=== PATIENT | male | born 1950 | race Caucasian/White ===

== ENCOUNTER 2019-09-30 10:07 | Observation (INO) | payer MEDICARE, SELFPAY ==
[2019-09-30 09:56] VITALS: BP 153/93; PULSE 63; RESP 24; TEMP 36.3; O2SAT 100; BMI 36.1
--- NOTE | 2019-09-30 10:06 | ECG_ITS ---
Measurements Intervals [place] Rate: 57 P: 23 [place]: 207 QRS: 33 QRSD: 117 T: 6 QT: 433 QTc: 424 SINUS BRADYCARDIA MODERATE INTRAVENTRICULAR CONDUCTION DELAY [110+ ms QRS DURATION] Compared to ECG 08/28/2017 08:32:15 Sinus rhythm no longer present Electronically Signed On 09-30-2019 15:21:00 SOCIAL SECURITY SPECIALIST by Yennifer Mustafa M.D. [email or web address]
--- NOTE | 2019-09-30 10:06 | CT_ITS ---
WS: [id number] CT HEAD TECHNIQUE: Noncontrast CT of the head obtained from the skullbase to the vertex. CLINICAL INFORMATION: Symptoms of Acute Stroke COMPARISON: None. DLP: All CT scans at [facility] use at least one of these dose optimization techniques: automat ed exposure control; mA and/or kV adjustment per patient size (includes targeted exams where dose is matched to clinical indication); or iterative reconstruction. FINDINGS: No evidence of intracranial hemorrhage or mass effect. Ventricular system and basal cisterns are underwood nt. Mild small vessel changes with mild parenchymal volume loss. No extra-axial fluid collections. No evidence of mass or mass effect. Normal hayward-white differentiation. Paranasal sinuses and mastoid air cells are well aerated. .Normal visualized soft tissues. Postoperat jailene changes right orbit Notified Eugene Wesley DO at 09/30/2019 10:[address]/CT head wo con* [id number] IMPRESSION: 1. No evidence of intracranial hemorrhage or mass effect. 2. Mild small vessel changes. Mild parenchymal volume loss. 3. Postoperative changes right orbit.
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
[2019-09-30 10:08] LABS: Glucose Point of Care 120 mg/dL (70-110)
[2019-09-30 10:13] LABS: Basophils # 0.1 10^3/uL (0.0-0.1); Basophils % 0.9 %; Eosinophils # 0.3 10^3/uL (0.0-0.8); Eosinophils % 4.6 %; Hematocrit 40.4 % (42.0-52.0); Hemoglobin 13.8 g/dL (11.7-16.6); Lymphocytes # 1.5 10^3/uL (0.8-4.8); Lymphocytes % 26.6 %; Mean Corpuscular HGB Conc 34.2 g/dL (30.0-36.0); Mean Corpuscular Hemoglobin 32.5 pg (28.0-34.0); Mean Corpuscular Volume 95.3 fL (80-94); Mean Platelet Volume 10.4 fL (7.4-10.4); Monocytes # 0.6 10^3/uL (0.2-0.9); Monocytes % 10.7 %; Neutrophils # 3.2 10^3/uL (1.8-7.7); Nucleated Red Blood Cells % 0 %; Platelet Count 229 10^3/cmm (130-400); Red Blood Count 4.24 10^6/uL (4.1-5.3); Red Cell Distribution Width 11.8 % (12.1-15.1); White Blood Count 5.6 10^3/uL (4.0-10.0)
[2019-09-30 10:18] LABS: INR 1.03 (0.8-1.2)
[2019-09-30 10:19] LABS: Partial Thromboplastin Time 28.4 SECONDS (23.9-36.7)
[2019-09-30 10:22] LABS: Alanine Aminotransferase 24 U/L (0-41); Albumin Level 4.3 g/dL (3.5-5.2); Alkaline Phosphatase 96 IU/L (40-130); Anion Gap 17.4 (5-19); Aspartate Amino Transferase 22 U/L (0-40); Blood Urea Nitrogen 20 mg/dL (8-23); Calcium 10.2 mg/dL (8.5-10.5); Carbon Dioxide 24 mmol/L (22-29); Chloride 104 mmol/L (98-107); Globulin 2.6 g/dL (1.3-4.6); Glomerular Filtration Rate 73.9 mL/min (90-130); Glucose 118 mg/dL (65-115); Potassium 4.4 mmol/L (3.5-5.1); Sodium 141 mmol/L (136-145); Total Bilirubin 0.7 mg/dL (0.15-1.2); Total Protein 6.9 g/dL (6.6-8.7)
--- NOTE | 2019-09-30 10:37 | XR_ITS ---
WS: [id number] XR chest 1V portable [id number] REASON FOR EXAM: dyspnea/cough FINDINGS: Cardiomegaly with arteriosclerotic changes. The lung sher are well aerated. There is no pneumonia, pleural effusion, pulmonary edema, there is evidence of reticular nodular pattern suggesting mild interstitial disease. The hilum and apices normal. Comparison was made to previous exam September 24, 2018 with limited change. XR/XR chest 1V portable [id number] IMPRESSION: Cardiomegaly with arteriosclerotic changes Early interstitial disease bilaterally.
[2019-09-30 10:43] LABS: Add Urine Microscopic? NO
[2019-09-30 10:55] LABS: Amphetamines Screen Urine Negative (Negative); Barbiturates Screen Urine Negative (Negative); Benzodiazepines Screen Urine Negative (Negative); Cocaine Screen Urine Negative (Negative); Opiate Screen Urine Negative (Negative); PCP Screen Urine Negative (Negative); THC Screen Urine Negative (Negative)
[2019-09-30 10:55] LABS: ABG PH Result 7.49 (7.35-7.45); Alveolar-Arterial Oxygen Gradi 42.4 mmHg (5-10); Arterial Blood Gas Hematocrit 43.5 % (42-52); Base Excess ABG 0.2 mmol/L (-2.0-2.0); Blood Gas Allen Test Pos; Blood Gas Operator Identificat amh; Blood Gas Sample Site Radial, left; Blood Gas Sample Type Arterial; Carboxyhemoglobin 0.7 %THgb (0.4-20.1); HCO3 ABG 22.7 mmol/L (22-26); HGB O2 Sat 95.1 % (95-100); Ionized Calcium Level - ABG 1.2 mmol/L (1.1-1.4); Methemoglobin 0.3 % (0.4-1.5); Oxygen Device ROOM AIR; Oxygen Saturation ABG 96.1; PO2 ABG 70.4 mmHg (80.0-100.0); Potassium Level - ABG 3.5 mmol/L (3.5-5.0); Total Hemoglobin 14.2 g/dL (14-18)
[2019-09-30 11:02] LABS: Bilirubin Urine Neg (NEGATIVE); Blood Urine Neg (Negative); Glucose Urine UA Norm (Normal); Ketones Urine Negative (Negative); Leukocyte Esterase Urine Negative (Negative); Nitrate Urine Negative (Negative); Protein Urine Neg (Negative); Sulfosalicylic Acid Urine Negative; Urine Appearance Clear (CLEAR); Urine Color Straw (Yellow); Urobilinogen Urine Norm (Negative)
[2019-09-30 11:04] LABS: Ketone (Acetest) Serum Negative (Negative)
[2019-09-30 11:08] LABS: Ammonia 38 umol/L (16-60)
[2019-09-30 11:18] LABS: Free T4 Free Thyroxine 0.93 ng/dL (0.82-1.77); Thyroid Stimulating Hormone 1.07 uIU/mL (0.27-4.20)
[2019-09-30 12:23] VITALS: BP 146/95; PULSE 62; RESP 22; O2SAT 97
[2019-09-30 14:18] VITALS: BP 150/77; PULSE 55; RESP 14; TEMP 36.5; O2SAT 94
--- NOTE | 2019-09-30 14:38 | CT_ITS ---
WS: [id number] CTA HEAD AND NECK TECHNIQUE: Contrast enhanced CTA of the head and neck with coronal and sagittal reformatted images an d maximum intensity projection (MIP) images. NASCET criteria utilized. CLINICAL INFORMATION: CVA COMPARISON: None. DLP: 2413.[address] scans at [facility] use at least one of these dose optimization techniques: automat ed exposure control; mA and/or kV adjustment per patient size (includes targeted exams where dose is matched to clinical indication); or iterative reconstruction. FINDINGS: RIGHT: Right common carotid artery is patent. Mild calcified atheromatous plaque right carotid bulb. No significant right ICA stenosis. Right ICA is patent to the skull base. LEFT: Left common carotid artery is patent. No significant left ICA stenosis. Left ICA is patent to t he skull base. Both vertebral arteries are patent. No significant vertebral artery stenosis. INTRACRANIAL CTA: Proximal basilar artery is patent. Normal vascularity to the DISTRIBUTION OPERATIONS SUPERVISOR territory bilaterally. Persistent ri ght DISTRIBUTION OPERATIONS SUPERVISOR. Both ICAs are patent at the skull base. Fusiform slightly ectatic right supraclinoid ICA without foca l aneurysm. Normal vascularity to the SOPHIA and MCA territories bilaterally. No evidence of high-grade proximal stenosis or aneurysm. Retention cyst right maxillary sinus. Postoperative changes right orbi t. Lung apices are well aerated. Normal parapharyngeal fat. CT/CT angio headneck* [id number] IMPRESSION: 1. No significant ICA stenosis bilaterally. 2. Normal [place]. No evidence of high-grade proximal stenosis or foc al aneurysm. 3. Mild fusiform dilatation of the right supraclinoid ICA likely incidental. N o significant stenosis or focal aneurysm.
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
[2019-09-30] MEDS: iohexol 350 mg/mL 100 mL Btl IV (15:32)
[2019-09-30 15:54] LABS: Chol HDL Ratio 5.52 mg/dL (1.0-5.00); Cholesterol 160 mg/dL (0-200); HDL Cholesterol 29 mg/dL (60-100); LDL Cholesterol Calculated 105 mg/dL (50-129); LDL HDL Ratio 3.62 RATIO (0.00-3.22); Triglycerides 132 mg/dL (0-150)
[2019-09-30 16:00] VITALS: BP 136/81; PULSE 57; RESP 16; TEMP 36.9; O2SAT 96
[2019-09-30] MEDS: sodium chloride 0.9% 1,000 ML 50 ML IV (16:16)
[2019-09-30] MEDS: enoxaparin 40 mg/0.4 mL Syringe SUBCUT (16:17)
[2019-09-30 18:37] LABS: Estmated Average Glucose 114; Hemoglobin A1C 5.6 % (4.0-6.0)
[2019-09-30 20:00] VITALS: BP 135/82; PULSE 62; RESP 18; TEMP 36.5; O2SAT 93
[2019-09-30] MEDS: acetaminophen 325 mg Tablet 650 MG PO (20:31)
[2019-09-30] MEDS: atorvastatin 40 mg Tablet PO (20:32)
[2019-10-01] VITALS: BP 128/86; PULSE 68; RESP 18; TEMP 36.7; O2SAT 94
--- NOTE | 2019-10-01 01:37 | PC.NURSE ---
Patient reports pain in his left zoroastrianism that comes and goes. Patient states, It comes like a sharp pain for a few seconds and then it stops. I first thought it was my CPAP Mask and where it was laying but now I am not sure. Cold washcloth placed on area. Will give Tylenol when it is due. Patient states that the headache that he had earlier did go away and he went to sleep. Patient's speech continues to be clear and left pupil is equal and reactive. Legal Job Titles remain equal and strength in left leg is slightly weaker then then right. Patient is A&Ox3.
[2019-10-01] MEDS: acetaminophen 325 mg Tablet 650 MG PO ×4 (01:58→13:40)
--- NOTE | 2019-10-01 02:00 | PC.NURSE ---
In room to give patient Tylenol. Patient states, They shooting pains have stopped now it is just a dull ache there. Tylenol given. Patient speech is clear and patient is A&Ox3.
[2019-10-01 04:00] VITALS: BP 124/72; PULSE 71; RESP 18; TEMP 36.8; O2SAT 95
[2019-10-01 06:11] LABS: Basophils # 0.1 10^3/uL (0.0-0.1); Eosinophils # 0.3 10^3/uL (0.0-0.8); Eosinophils % 5.6 %; Hematocrit 38.9 % (42.0-52.0); Hemoglobin 13.3 g/dL (11.7-16.6); Lymphocytes # 1.6 10^3/uL (0.8-4.8); Mean Corpuscular HGB Conc 34.2 g/dL (30.0-36.0); Mean Corpuscular Hemoglobin 33.7 pg (28.0-34.0); Mean Corpuscular Volume 98.5 fL (80-94); Mean Platelet Volume 10.3 fL (7.4-10.4); Monocytes # 0.6 10^3/uL (0.2-0.9); Monocytes % 11.9 %; Neutrophils # 2.6 10^3/uL (1.8-7.7); Neutrophils % 50.3 %; Nucleated Red Blood Cells % 0 %; Platelet Count 195 10^3/cmm (130-400); Red Blood Count 3.95 10^6/uL (4.1-5.3); Red Cell Distribution Width 11.6 % (12.1-15.1); White Blood Count 5.2 10^3/uL (4.0-10.0)
[2019-10-01 06:34] LABS: Alanine Aminotransferase 22 U/L (0-41); Albumin Level 3.7 g/dL (3.5-5.2); Alkaline Phosphatase 82 IU/L (40-130); Anion Gap 13.7 (5-19); Aspartate Amino Transferase 19 U/L (0-40); Blood Urea Nitrogen 16 mg/dL (8-23); Calcium 9.4 mg/dL (8.5-10.5); Carbon Dioxide 23 mmol/L (22-29); Chloride 107 mmol/L (98-107); Globulin 2.5 g/dL (1.3-4.6); Glomerular Filtration Rate 83.4 mL/min (90-130); Glucose 110 mg/dL (65-115); Potassium 3.7 mmol/L (3.5-5.1); Sodium 140 mmol/L (136-145); Total Bilirubin 0.5 mg/dL (0.15-1.2); Total Protein 6.2 g/dL (6.6-8.7)
--- NOTE | 2019-10-01 06:45 | PC.NURSE ---
Patient woke up with a headache at this time. Ice pack given. Explained to patient that it is to early for me to give Tylenol. Patient verbalized understanding.
[2019-10-01 07:53] VITALS: BP 158/90; PULSE 54; RESP 18; TEMP 36.4; O2SAT 95
[2019-10-01] MEDS: clopidogrel 75 mg Tablet PO (08:41)
[2019-10-01] MEDS: aspirin 81 mg EC Tablet PO (08:42)
[2019-10-01 10:28] VITALS: PULSE 53; RESP 18; O2SAT 95
[2019-10-01 11:33] VITALS: BP 162/90; PULSE 60; RESP 18; TEMP 36.4; O2SAT 96
[2019-10-01] MEDS: sodium chloride 0.9% 1,000 ML 50 ML IV (11:41)
--- NOTE | 2019-10-01 13:17 | PC.CHAP ---
Pastoral Care Encounter/Spiritual Assessment Type of Contact [] Declined grip wrapper visit [] Patient/Family/Request visit [] Outpatient visit [] Follow-up visit [] Physician referral [] Code/Alert [X] Routine visit [] Staff referral [] Actively dying [] Patient sleeping [] Family support [] [] Out of room [] Palliative care [] [] Receiving care in room [] Pre-surgical visit [] Trauma [] Long length of stay [] ICU visit [] Other: Relational/Emotional Strength [] Patient feels connected with others/family/visitors/staff [] Distress [] Loneliness/isolation [] Abandonment Spirituality of Patient [] Person of Sofia [] Attends Congregation of their Sofia [] Believes in Prayer [] Reads Bible or Anabaptism materials [] There are Spiritual issues to be addressed Billposter Interventions [] Prayer [] Active listening [] Non-anxious presence [] Spiritual/emotional support [] Crisis/trauma care [] Spiritual counseling [] Bereavement support [] Provided bereavement packet [] Provided Bible/devotional materials [] Provided toy/stuffed animal, coloring book to patient or family member [] Provided Communion [] Anointing/[place] [] Salvation [] Completed spiritual assessment [] Other: Impact on Illness or Injury [] Angry [] Fearful [] Anxious [] Often cries [] Exhaustion [] Unable to work [] Unable to attend spiritism [] Unable to walk/stand [] Unable to read [] Unable to drive [] Unable to eat/drink [] Unable to sleep [] Unable to be with family [] Patient intubated [] Other: Summary BEING DISCHARGED Time spent with patient
--- NOTE | 2019-10-01 14:40 | USCV_ITS ---
Jones Rodríguez Age: 68 Gender: M : 1950 Exam Date: 10/01/2019 09:17 Ordering Phys: Mackenzie Phan DO Technologist: Kay Saenz Exam Location: [facility] – [place], [place] Indication: cva BP: 158 / 90 HR: 59 Rhythm: Sinus Bradycardia Technical Quality: Fair MEASUREMENTS (Male / Female) Normal Values 2D ECHO LV Diastolic Diameter PLAX 5.0 cm 4.2 - 5.9 / 3.9 - 5.3 cm LV Systolic Diameter PLAX 3.2 cm LV Chamber Size 4.3 cm IVS Diastolic Thickness 2.0 cm 0.6 - 1.0 / 0.6 - 0.9 cm IVS Systolic Thickness 2.3 cm LVPW Diastolic Thickness 1.2 cm 0.6 - 1.0 / 0.6 - 0.9 cm LVPW Systolic Thickness 1.9 cm RV Chamber Size 2.8 cm LVOT Diameter 2.3 cm LV Ejection Fraction 2D Teich 66.6 % LV Ejection Fraction MOD 2C 61.9 % LV Ejection Fraction 2C AL 63.2 % LA Diameter 6.0 cm LA Width 4.0 cm LA Height 5.6 cm RA Width 2.5 cm RA Height 5.5 cm Aorta at Sinotubular Diameter 3.8 cm M-MODE LV Diastolic Diameter MM 5.6 cm 4.2 - 5.9 / 3.9 - 5.3 cm LV Systolic Diameter MM 3.6 cm LV Ejection Fraction MM Teich 63.4 % IVS Diastolic Thickness MM 1.7 cm 0.6 - 1.0 / 0.6 - 0.9 cm IVS Systolic Thickness MM 2.1 cm LVPW Diastolic Thickness MM 1.8 cm 0.6 - 1.0 / 0.6 - 0.9 cm LVPW Systolic Thickness MM 2.5 cm RV Diastolic Diameter MM 2.3 cm Aortic Annulus Diameter 4.8 cm LA Ao Ratio MM 1.2 MV E Point Septal Separation 0.5 cm DOPPLER AV Peak Velocity 141.0 cm/s LVOT Peak Velocity 111.0 cm/s AV Area Cont Eq vti 3.3 cm squared AV Area Cont Eq pk 3.2 cm squared MV Area PHT 3.3 cm squared Mitral E to A Ratio 0.8 MV E' Velocity 7.0 cm/s Mitral E to MV E' Ratio 11.5 Mitral E to LV E' Lateral Ratio 10.2 Mitral E to LV E' Septal Ratio 13.5 TR Peak Velocity 247.0 cm/s TR Peak Gradient 24.4 mmHg TV Peak E Velocity 72.0 cm/s Right Atrial Pressure 3.0 mmHg Pulmonary Artery Systolic Pressu 27.4 mmHg PV Peak Velocity 73.0 cm/s RV Acceleration Time 0.1 s RV Ejection Time 0.3 s RV AcT/ET 0.3 FINDINGS Left Ventricle Normal left ventricular cavity size. Normal left ventricular systolic function. No regional wall motion abnormalities. Left ventricular ejection fraction is estimated at 60 %. Grade I/IV diastolic dysfunction (abnormal relaxation filling pattern), normal to mildly elevated filling pressures. Right Ventricle The right ventricle is normal in size and function. Right Atrium The right atrium is normal in size. Left Atrium The left atrium is normal in size. Mitral Valve Structurally normal mitral valve without significant stenosis or prolapse. There is no mitral regurgitation. Aortic Valve Structurally normal aortic valve without significant sclerosis or stenosis. There is no aortic regurgitation. Tricuspid Valve Structurally normal tricuspid valve without significant stenosis or regurgitation. Pulmonary artery systolic pressure is normal. Pulmonic Valve Structurally normal pulmonic valve without significant stenosis. There is no pulmonic regurgitation. Pericardium Normal pericardium without effusion. Aorta Normal ascending aorta dimension. CONCLUSIONS 1-Normal left ventricular cavity size. Normal left ventricular systolic function. No regional wall motion abnormalities. Left ventricular ejection fraction is estimated at 60 %. Grade I/IV diastolic dysfunction (abnormal relaxation filling pattern), normal to mildly elevated filling pressures. 2-There is no pericardial effusion. 3-No significant valve abnormalities. 4-Pulmonary artery systolic pressure is within normal limits. 5-No significant change since the prior echocardiogram study of 09/30/2018. Roseanna Bello MD (Electronically Signed) Final Date: 01 October 2019 18:11 S
[2019-10-01 15:02] VITALS: BP 162/90; PULSE 60; RESP 18; TEMP 36.4; O2SAT 96
--- NOTE | 2019-10-01 15:17 | PM.DCS ---
Discharge Providers Date of Admission: 09/30/19 11:56 Date of Discharge: October 01, 2019 Attending Provider at Admission: Mackenzie Phan DO Attending Provider at Discharge: Mathew Kwan MD Primary Care Provider: Waqar Johns MD Diagnoses at Discharge Discharge Diagnosis (1) CVA (cerebrovascular accident): Status: Acute (2) Hypertension: Status: Acute (3) Hyperlipidemia: Status: Acute (4) Obstructive sleep apnea: Status: Acute (5) Aortic aneurysm: Status: Acute Qualifiers: Aortic location: thoracoabdominal aorta Presence of rupture: without rupture Qualified Code(s): I71.6 - Thoracoabdominal aortic aneurysm, without rupture Reason for Visit Reason for Visit: Reason For Visit: Possible Stroke Hospital Course Discharge Summary: This is a 68-year-old male with a past medical history of hypertension, hyperlipidemia who presents to the emergency room due to complaints of facial droop and weakness for greater than 24 hours. Patient's NIH stroke score on admission was 2, patient was not deemed a candidate for TPA, he was medically managed, CT of the head was negative for intracranial bleed, CT angiogram of the head and neck showed no significant ICA stenosis bilaterally, normal kenaitze of Haile, no evidence of high-grade proximal stenosis or focal aneurysm, mild fusiform dilatation of the right supraclinoid colloid ICA likely incidental, no significant stenosis or focal aneurysm. Patient's telemetry monitoring had no significant atrial fibrillation events. Patient's echocardiogram was pending on discharge. Patient symptoms significantly resolved, on the morning of discharge patient remained asymptomatic except for some mild facial numbness at the level of V2. Patient was discharged on aspirin and Plavix for 3 weeks, followed by aspirin 81 mg chronically. Patient has a chronic intolerance to statin, has severe myopathy, no history of rhabdomyolysis, after discussion of the risks and benefits, patient agreed to take atorvastatin 20 mg. Although I advised that after a stroke, high-dose statins such as atorvastatin 80 mg are recommended to decrease his risk of stroke, and lower the LDL less than 70, plaque stabilization, however patient advocated that he has a strong intolerance to statins, advised the risk of recurrent stroke, voiced understanding, all questions answered, agreed to take 20 mg of atorvastatin once daily although this is suboptimal dosing after stroke. Patient was advised to reinstitute blood pressure medications tomorrow. With a close follow-up with Dr. Johns early next week. Patient was advised that if he were to have recurrent strokelike symptoms to come to the emergency room. I have also discharged the patient on a Holter monitor to monitor for atrial fibrillation events. Physical Exam Const: COMMON NORMALS: no apparent distress and oriented x3 GENERAL APPEARANCE: cooperative and comfortable HENMT: COMMON NORMALS: normocephalic HEAD & SCALP: normocephalic Eye: COMMON NORMALS: PERRL, EOMs intact bilaterally and no papilledema GENERAL EYE: normal appearance of both eyes PUPIL: Yes PERRL DIRECT OPHTHALMOSCOPY: Yes no papilledema Neck/C-Spine: COMMON NORMALS: full ROM, no lymphadenopathy, no JVD and thyroid normal THYROID: thyroid normal Lymph: LYMPHATIC: no lymphadenopathy noted Resp: COMMON NORMALS: normal respiratory effort, no retractions, no use of accessory muscles and clear to auscultation bilaterally AUSCULTATION: clear to auscultation bilaterally Cardio: COMMON NORMALS: no JVD, regular rate, regular rhythm, S1 normal heart sound, S2 normal heart sound, no gallops, no clicks and no murmurs RATE: regular rate RHYTHM: regular rhythm HEART SOUNDS: S1 normal and S2 normal GI: COMMON NORMALS: normal to inspection, nondistended, normoactive bowel sounds, soft to palpation, non-tender and no hepatosplenomegaly PALPATION: Yes soft and Yes no hepatosplenomegaly Extremity: COMMON NORMALS: normal to inspection, full ROM and no pedal edema Neuro: COMMON NORMALS: oriented x3, CN's II-XII intact bilaterally, moves all extremities and no focal motor deficits Psych: COMMON NORMALS: mental status grossly normal, thought process normal and cooperative THOUGHT PROCESS: normal thought process Discharge Data Data Completed and Pending: Completed Studies During Hospitalization Category Date Time Status CT angio headneck * [id number] Rout ine Cat Scan 09/30/19 14:[address] head wo con* 7 0450 Stat Cat Scan 09/30/19 10:06 Completed XR chest 1V lalitha ble [id number] Stat Exams 09/30/19 10:37 Completed Pending at discharge Category Date Time Status CV echo complete* [id number] Routine Ultrasound 10/01/19 14:40 Taken Labs from last 24 hours 10/01/19 10/01/19 09/30/19 05:46 05:46 09:47 WBC 5.2 RBC 3.95 L Hgb 13.3 Hct 38.9 L MCV 98.5 H MCH 33.7 MCHC 34.2 RDW 11.6 L Plt Count 195 MPV 10.3 Neut % (Auto) 50.3 Lymph % (Auto) 31.0 Anson % (Auto) 11.9 Eos % (Auto) 5.6 Baso % (Auto) 1.0 Neut # (Auto) 2.6 Lymph # (Auto) 1.6 Anson # (Auto) 0.6 Eos # (Auto) 0.3 Baso # (Auto) 0.1 Nucleated RBC % (a uto) 0 Nucleated RBCs # 0.0 Sodium 140 Potassium 3.7 Chloride 107 Carbon Dioxide 23 Anion Gap 13.7 BUN 16 Creatinine 0.9 GFR Calculation 83.4 L Glucose 110 Estimat Average Gl ucose Hemoglobin A1c Calcium 9.4 Total Bilirubin 0.5 AST 19 ALT 22 Alkaline Phosphata se 82 Total Protein 6.2 L Albumin 3.7 Globulin 2.5 Triglycerides 132 Cholesterol 160 LDL Cholesterol, C alc 105 HDL Cholesterol 29 L LDL/HDL Ratio 3.62 H Cholesterol/HDL Ra jae 5.52 H 09/30/19 09:47 WBC RBC Hgb Hct MCV MCH MCHC RDW Plt Count MPV Neut % (Auto) Lymph % (Auto) Anson % (Auto) Eos % (Auto) Baso % (Auto) Neut # (Auto) Lymph # (Auto) Anson # (Auto) Eos # (Auto) Baso # (Auto) Nucleated RBC % (a uto) Nucleated RBCs # Sodium Potassium Chloride Carbon Dioxide Anion Gap BUN Creatinine GFR Calculation Glucose Estimat Average Gl ucose 114 Hemoglobin A1c 5.6 Calcium Total Bilirubin AST ALT Alkaline Phosphata se Total Protein Albumin Globulin Triglycerides Cholesterol LDL Cholesterol, C alc HDL Cholesterol LDL/HDL Ratio Cholesterol/HDL Ra jae Vitals: Last Vital Signs Temp 97.5 F L 10/01/19 15:02 Pulse 60 10/01/19 15:02 Resp 18 10/01/19 15:02 BP 162/90 10/01/19 15:02 Pulse Ox 96 10/01/19 15:02 Discharge Plan Discharge Patient Disposition: Home, Self-Care Condition: Stable Prescriptions: New atorvastatin 40 mg Tablet 20 mg PO BEDTIME 30 Days Qty: 30 RF: 0 clopidogrel 75 mg Tablet 75 mg PO DAILY 21 Days Qty: 21 RF: 0 tramadol 50 mg tablet 25 mg PO Q12H PRN (Reason: pain) 5 Days Qty: 5 RF: 0 Continued probenecid-colchicine Tablet 1 tab PO BID RF: 0 aspirin 81 mg tablet,delayed release (DR/EC) 81 mg PO BID RF: 0 vitamin B complex [B Complex-Vitamin B12] Tablet 1 tab PO DAILY RF: 0 naproxen 500 mg tablet 500 mg PO BID PRN (Reason: Pain) RF: 0 omeprazole 20 mg tablet,delayed release (DR/EC) 20 mg PO DAILY RF: 0 multivitamin Tablet 1 tab PO DAILY RF: 0 omega-3 fatty acids [Fish Oil Concentrate] 1,000 mg capsule 1,000 mg PO BID RF: 0 cholecalciferol (vitamin D3) 3,000 unit tablet 2,000 unit PO DAILY RF: 0 turmeric root extract 500 mg capsule 500 mg PO BID RF: 0 flaxseed oil 1,000 mg Capsule 1,000 mg PO DAILY RF: 0 Held carvedilol 6.25 mg tablet 6.25 mg PO BID RF: 0 Hold Instructions: Resume on 10/02/19. amlodipine 5 mg tablet 5 mg PO DAILY RF: 0 Hold Instructions: Resume on 10/02/19. lisinopril 20 mg tablet 20 mg PO DAILY RF: 0 Hold Instructions: Resume on 10/02/19. Discharge Orders: Discharge Order (Routine); Ordered 10/01/19 Ordered By: Mathew Kwan Other Ambulatory Orders: Complete Blood Count w/Auto (Routine) Timeframe: 2 Days Location: Determined by Patient Ordered By: Mathew Kwan Creatine Phosphokinase (Routine) Timeframe: 2 Days Facility: [facility] - Location: Lab - Main Lab Ordered By: Mathew Kwan Holter Monitor (Routine) Timeframe: 2 Days Facility: [facility] - Location: Cardiology Outpatients Ordered By: Mathew Kwan Ref[facility]: [facility] [place] Waqar Johns MD [Primary Care Provider] - 4-7 days (Please call Thursday to set up a follow up appointment with Dr. Neiluling 4-7 days. You will also need to call [facility] [phone] on Thursday to set up an appointment for a halter monitor.) Discharge Diet: Regular Discharge Activity: Resume usual activity Patient Instructions: Tramadol (By mouth), Atorvastatin (By mouth), Clopidogrel (By mouth), Ischemic Stroke (GEN), Chronic Hypertension (GEN), Self Care Measures After a Stroke (GEN) Activity Restrictions/Additional Instructions: -Please take aspirin and Plavix together for 3 weeks, and stop Plavix after 3 weeks -Check blood pressures twice daily -If blood pressure systolic greater than 220 come to the emergency room, if diastolic greater than 120 come to the emergency room -Please resume blood pressure medications tomorrow -Please follow-up on Thursday to be fitted for a Holter monitor -Please follow-up with Dr. 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
--- NOTE | 2019-10-01 15:25 | PC.NURSE ---
patient discharged at this time, discharge instructions given. taken down in a wheel chair with .
== END 2019-10-01 15:25 | disposition home or self-care (01) ==
LOC: ER 11:43 → MEDSURG 12:15
PROVIDERS: Admitting Provider Family Medicine; Emergency Provider Family Medicine; Family Provider Family Medicine; PCP Family Medicine; Visit Provider Family Medicine
DX: I63.9 Cerebral infarction, unspecified (principal); R29.702 NIHSS score 2; I10 Essential (primary) hypertension; E78.5 Hyperlipidemia, unspecified; G47.33 Obstructive sleep apnea (adult) (pediatric); I71.6 Thoracoabdominal aortic aneurysm, without rupture; M19.90 Unspecified osteoarthritis, unspecified site; Z87.891 Personal history of nicotine dependence; Z86.73 Personal history of transient ischemic attack (TIA), and cerebral infarction without residual deficits
CPT/HCPCS: 12345; 36415; 36416; 36600; 70450; 70496; 70498; 71045; 80051; 80053; 80061; 80307; 81003; 82009; 82140; 82810; 82962; 83036; 83986; 84439; 84443; 85025; 85610; 85730; 92523; 92610; 93005; 93306; 96360; 96361; 96372; 97112; 97116; 97162; 97165; 99282; 99285; A9270; G0378; J1650; J7030; Q9967

== ENCOUNTER 2020-01-06 07:02 | Day surgery (SDC) | payer MEDICARE, SELFPAY ==
[2020-01-05 10:27] VITALS: BMI 33.1
[2020-01-06 07:26] VITALS: BP 114/85; PULSE 53; RESP 18; TEMP 36.8; O2SAT 98
[2020-01-06 07:27] LABS: Basophils # 0.1 10^3/uL (0.0-0.1); Basophils % 1.6 %; Eosinophils # 0.2 10^3/uL (0.0-0.8); Eosinophils % 3.4 %; Hematocrit 41.8 % (42.0-52.0); Hemoglobin 14.1 g/dL (11.7-16.6); Lymphocytes # 1.2 10^3/uL (0.8-4.8); Mean Corpuscular HGB Conc 33.7 g/dL (30.0-36.0); Mean Corpuscular Volume 97.9 fL (80-94); Monocytes # 0.6 10^3/uL (0.2-0.9); Monocytes % 13.5 %; Neutrophils # 2.4 10^3/uL (1.8-7.7); Neutrophils % 53.3 %; Nucleated Red Blood Cells % 0 %; Platelet Count 196 10^3/cmm (130-400); Red Blood Count 4.27 10^6/uL (4.1-5.3); Red Cell Distribution Width 11.9 % (12.1-15.1); White Blood Count 4.4 10^3/uL (4.0-10.0)
[2020-01-06] MEDS: cephALEXin 500 mg Capsule 2000 MG PO (07:40)
--- NOTE | 2020-01-06 08:21 | W.PM.OPSUD ---
Surgery/Procedure H&P Update DATE OF PROCEDURE: January 06, 2020 DATE H&P PERFORMED: 12/15/19 H&P UPDATE INFORMATION: I have reviewed H&P completed within last 30 days, I have examined patient prior to procedure and No changes to prior documentation PREOP DIAGNOSIS: recurrent near syncope/ TIA PLANNED PROCEDURE: Operation Date: 01/06/20 08:30 Proposed Procedures p Loop Recorder Insertion(Not Applicable) - Saima Nixon MD PATIENT REASSESSED PRIOR TO SEDATION, WITH NO CHANGE NOTED: Yes PHYSICAL EXAM: alert, oriented x 3, clear to auscultation bilaterally and regular rate & rhythm AIRWAY EVAL/ANESTHESIA PLAN: normal airway, ASA II and Risks, benefits & alternatives of sedation and/or procedure discussed
--- NOTE | 2020-01-06 08:46 | PM.OP ---
Operative Report Date of procedure: January 06, 2020 Pre-op Diagnosis: recurrent near syncope/ TIA Post-op diagnosis: same Procedure Done: Insertion of the implantable environmental research project manager Surgeon: Saima Nixon Senior Network Systems Engineer: Jhonny Andrews Anesthesia: Local Complications: none Condition: stable Brief History: This is a 69-year-old white male with history of atherosclerotic heart disease, high blood pressure and dyslipidemia presented with episodes of recurrence of CVA. He has clinical features of cryptogenic stroke. He had an event monitor which was unremarkable. For further evaluation of his symptoms, an implantable environmental research project manager was recommended. Procedure: Date of Procedure: [] Name of the procedure: IMPLANTABLE CENTER MACHINE SET UP OPERATOR INSERTION LOCATION: [facility] REFERRING PROVIDER: Dr. Johns PREOPERATIVE DIAGNOSIS: Recurrent TIA/near syncope POSTOPERATIVE DIAGNOSIS: Same. ESTIMATED BLOOD LOSS: None[] COMPLICATIONS: None. BRIEF HISTORY: Patient presented with [recurrent episodes of CVA & near syncope]. [He] had an [event monitor] which didn't reveal any significant arrhythmias to explain the symptoms. For further evaluation, an implantable environmental research project manager was recommended PROCEDURE: The procedure was explained to the patient in detail with the risks and benefits. The risk of bleeding, hematoma, vascular injury, infection and other concomitant complications were explained in detail. The patient understood this well and consented to proceed. The patient was brought to the Cardiac It Specialist. The left side of the chest was cleaned and draped in a sterile fashion. 1% Xylocaine was used as local anesthetic agent. An incision was made in the left fourth intercostal space. Making use of the application device, the implantable environmental research project manager was inserted, subcutaneously. 5 minutes of manual pressure was applied, at the puncture site. The patient tolerated the procedure very well and there were no complications. No bleeding or hematoma. Steri-Strips were applied over the insertion site followed by a sterile dressing. Patient was sent back to the medical floor in stable condition IMPLANTED DEVICE Reveal LINQ Model number: [id number] Serial number: [RLA] [[id number]] Make: Medtronic Parameters: Standard settings were applied( (tachycardia rate of 150 beats per minute , bradycardia rate of 40 beats per minute and a pause of 3 seconds ; symptom recording -4 episodes of 7.5 minutes. Atrial fibrillation detection was turned on- recording threshold of ->6 minutes. Sensitivity was kept at 0.035 mV) The R wave sensing was [0.38]mV
--- NOTE | 2020-01-06 08:50 | SUR.PHASEII ---
POST PROCEDURE NOTE Surgical site dressed with steri strips and a covaderm per protocol. Manual pressure held at site for 5 minutes as ordered per Dr Nixon. Hemostasis obtained. Pressure bandage applied. Post procedure instructions and education went over with the patient. Verbalized understanding. Family updated per spouse post procedure. No c/o voiced at this time.
[2020-01-06 09:13] VITALS: BP 144/89; PULSE 54; RESP 17; TEMP 36.8; O2SAT 95
== END 2020-01-06 09:33 | disposition home or self-care (01) ==
PROVIDERS: PCP Family Medicine; Visit Provider Internal Medicine Cardiovascular Disease
PROC: (CPT 33285; principal; 2020-01-06 08:30)
DX: R55 Syncope and collapse (principal); I25.10 Atherosclerotic heart disease of native coronary artery without angina pectoris; E78.5 Hyperlipidemia, unspecified; Z79.82 Long term (current) use of aspirin; M19.90 Unspecified osteoarthritis, unspecified site; G47.33 Obstructive sleep apnea (adult) (pediatric); I10 Essential (primary) hypertension; Z86.73 Personal history of transient ischemic attack (TIA), and cerebral infarction without residual deficits; Z87.891 Personal history of nicotine dependence
CPT/HCPCS: 12345; 33285; 85025; C1764; J2001

== ENCOUNTER 2020-02-13 13:45 | Outpatient (CLI) | payer MEDICARE, SELFPAY ==
--- NOTE | 2020-02-13 13:56 | USCV_ITS ---
Jones Rodríguez Age: 69 Gender: M : 1950 Exam Date: 02/13/2020 14:13 Ordering Phys: Saima Nixon MD ([email or web address]) Technologist: Trish Pena Exam Location: [facility] [place] Indication: CAD BP: / HR: 57 Rhythm: Sinus Technical Quality: MEASUREMENTS (Male / Female) Normal Values 2D ECHO LV Diastolic Diameter PLAX 4.7 cm 4.2 - 5.9 / 3.9 - 5.3 cm LV Systolic Diameter PLAX 3.9 cm LV Chamber Size 4.0 cm IVS Diastolic Thickness 1.5 cm 0.6 - 1.0 / 0.6 - 0.9 cm IVS Systolic Thickness 2.1 cm LVPW Diastolic Thickness 1.7 cm 0.6 - 1.0 / 0.6 - 0.9 cm LVPW Systolic Thickness 2.1 cm RV Chamber Size 2.9 cm LVOT Diameter 2.1 cm LV Ejection Fraction 2D Teich 34.8 % LV Ejection Fraction MOD 2C 55.2 % LV Ejection Fraction 2C AL 54.2 % LA Diameter 4.6 cm LA Width 3.5 cm LA Height 4.2 cm RA Width 4.6 cm RA Height 4.7 cm Aorta at Sinotubular Diameter 4.0 cm M-MODE LV Diastolic Diameter MM 5.9 cm 4.2 - 5.9 / 3.9 - 5.3 cm LV Systolic Diameter MM 4.2 cm LV Ejection Fraction MM Teich 56.1 % IVS Diastolic Thickness MM 1.0 cm 0.6 - 1.0 / 0.6 - 0.9 cm IVS Systolic Thickness MM 1.3 cm LVPW Diastolic Thickness MM 1.4 cm 0.6 - 1.0 / 0.6 - 0.9 cm LVPW Systolic Thickness MM 1.8 cm RV Diastolic Diameter MM 2.1 cm Aortic Annulus Diameter 4.6 cm LA Ao Ratio MM 1.0 MV E Point Septal Separation 0.8 cm DOPPLER AV Peak Velocity 126.0 cm/s LVOT Peak Velocity 84.0 cm/s AV Area Cont Eq vti 2.7 cm squared AV Area Cont Eq pk 2.3 cm squared MV Area PHT 2.5 cm squared Mitral E to A Ratio 0.7 MV E' Velocity 61.0 cm/s TR Peak Velocity 312.8 cm/s TR Peak Gradient 39.1 mmHg TR Mean Velocity 240.8 cm/s TR Mean Gradient 25.5 mmHg TR Velocity Time Integral 94.3 cm TV Peak E Velocity 64.0 cm/s Right Atrial Pressure 3.0 mmHg Pulmonary Artery Systolic Pressu 42.1 mmHg PV Peak Velocity 45.0 cm/s RV Acceleration Time 0.1 s RV Ejection Time 0.3 s RV AcT/ET 0.4 FINDINGS Left Ventricle Normal left ventricular size and systolic function, EF 55 %. Mild left ventricular hypertrophy. No regional wall motion abnormalities. Right Ventricle The right ventricle is normal in size and function. Right Atrium The right atrium is normal in size. Left Atrium The left atrium is normal in size. Mitral Valve Mild mitral annular calcification. Aortic Valve Thickened aortic valve. Trace to mild aortic valve regurgitation. Tricuspid Valve Trace tricuspid valve regurgitation. Pulmonic Valve Not well visualized Pericardium Normal pericardium without effusion. Aorta Dilated ascending aorta, measuring 4.6 cm in diameter CONCLUSIONS Normal left ventricular size and systolic function, EF 55 %. Mild left ventricular hypertrophy. No regional wall motion abnormalities. Thickened aortic valve. Trace to mild aortic valve regurgitation. Mild mitral annular calcification. Dilated ascending aorta, measuring 4.6 cm in diameter There is no pericardial effusion. There are no intracardiac masses. Because of the differences in the technical quality, comparison with the previous study is difficult. However no significant changes were noted Dr Saima Nixon MD [facility] (Electronically Signed) Final Date: 13 February 2020 19:12 S
== END 2020-02-13 13:46 | disposition home or self-care (01) ==
LOC: US 13:47
PROVIDERS: PCP Family Medicine; Visit Provider Internal Medicine Cardiovascular Disease
DX: I08.0 Rheumatic disorders of both mitral and aortic valves; I25.10 Atherosclerotic heart disease of native coronary artery without angina pectoris
CPT/HCPCS: 93306

== ENCOUNTER → 2020-02-21 10:20 | Outpatient (BNVA) | payer MEDICARE, SELFPAY | PROVIDERS: PCP Family Medicine; Visit Provider Internal Medicine Cardiovascular Disease | DX: I71.6 Thoracoabdominal aortic aneurysm, without rupture (principal); E78.2 Mixed hyperlipidemia; E78.5 Hyperlipidemia, unspecified; G45.9 Transient cerebral ischemic attack, unspecified; I10 Essential (primary) hypertension; Z95.818 Presence of other cardiac implants and grafts; G47.33 Obstructive sleep apnea (adult) (pediatric); I25.10 Atherosclerotic heart disease of native coronary artery without angina pectoris; Z87.891 Personal history of nicotine dependence | CPT/HCPCS: 80061 ==

== ENCOUNTER → 2020-06-08 17:51 | Outpatient (BNVA) | payer MEDICARE, SELFPAY | PROVIDERS: PCP Family Medicine; Visit Provider Nurse Practitioner Family | DX: Z20.828 Contact with and (suspected) exposure to other viral communicable diseases (principal) | CPT/HCPCS: 87635 ==

== ENCOUNTER → 2020-08-30 08:50 | Outpatient (BNVA) | payer MEDICARE, SELFPAY | PROVIDERS: PCP Family Medicine; Visit Provider Internal Medicine Cardiovascular Disease | DX: E78.2 Mixed hyperlipidemia (principal); R06.02 Shortness of breath | CPT/HCPCS: 80048; 80061; 80076 ==

== ENCOUNTER → 2020-09-24 14:50 | Outpatient (BNVA) | payer MEDICARE, SELFPAY | PROVIDERS: PCP Family Medicine; Referring Provider Family Medicine; Visit Provider Specialist | DX: M17.12 Unilateral primary osteoarthritis, left knee (principal); M54.32 Sciatica, left side | CPT/HCPCS: 73560; 73565 ==

== ENCOUNTER → 2020-10-08 08:20 | Outpatient (BNVA) | payer MEDICARE, SELFPAY | PROVIDERS: PCP Family Medicine; Visit Provider Specialist | DX: M79.641 Pain in right hand (principal); M17.12 Unilateral primary osteoarthritis, left knee; M19.041 Primary osteoarthritis, right hand; Z46.89 Encounter for fitting and adjustment of other specified devices; M18.11 Unilateral primary osteoarthritis of first carpometacarpal joint, right hand | CPT/HCPCS: 73130; L3924 ==

== ENCOUNTER 2020-10-08 09:58 | Outpatient (CLI) | payer MEDICARE, SELFPAY | END 2020-10-08 09:59 | disposition home or self-care (01) | LOC: SPT 09:59 | PROVIDERS: PCP Family Medicine; Visit Provider Specialist | DX: Z46.89 Encounter for fitting and adjustment of other specified devices (principal); M79.641 Pain in right hand; M18.11 Unilateral primary osteoarthritis of first carpometacarpal joint, right hand | CPT/HCPCS: L3924 ==

== ENCOUNTER 2020-10-09 15:21 | Outpatient (CLI) | payer MEDICARE, SELFPAY ==
--- NOTE | 2020-10-09 16:00 | MR_ITS ---
WS: [id number] MRI LEFT KNEE NONCONTRAST TECHNIQUE: Axial PD, coronal PD fat sat, coronal PD, sagittal PD, and sagittal PD fat-sat images obta ined. CLINICAL INFORMATION: M17.12 - Unilateral primary osteoarthritis, left knee FINDINGS: Correlation prior MRI December 2015 Distal quadriceps and patella tendons are intact. Hypertrophic patella. Anterior and posterior crucia te ligaments are intact. Chronic thinning of the medial and lateral meniscus with chronic intrasubsta nce signal abnormality. Small complex horizontal and radial tear involving the posterior horn medial meniscus extending to the articular surface appears new from previous. Chronic medial meniscus root t ear with blunting Near complete loss of the joint space involving the medial joint compartment with near [id number] a rticulation and advanced chondromalacia progressed from previous. Subchondral edema involving the med ial femoral condyle laterally at the articular surface. No edema in the tibial plateau. Moderate dege nerative narrowing involving the lateral joint compartment. Moderate to advanced chondromalacia patella. No subchondral edema. Small suprapatellar effusion. Medi al and lateral collateral ligaments appear intact. Small amount of edema and fluid along the superfic ial and deep fibers of the MCL can be seen with grade 1-2 injury. Recommend clinical correlation with recent injury. Mild diffuse soft tissue edema. Small parameniscal cysts along the posterior and medial margins of th e medial meniscus. Lobulated marginal cyst measures 3.1 x 0.6 cm and posterior cyst measures 0.9 CM. MR/MR knee LT wo con* [id number] IMPRESSION: 1. Anterior and posterior cruciate ligaments are intact. 2. Tricompartmental arthritis worse involving the medial joint compartment wit h near complete loss of the joint space. This appears progressed from 2016. Sma ll amount of subchondral edema in the lateral femoral condyle. 3. 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 4. Chronic thinning of the medial meniscus with chronic tear along the menisca l root. Intrasubstance signal abnormality involving the posterior horn with pro gressed radial and horizontal undersurface tears. 5. Small para meniscal cysts about the medial meniscus described above. 6. Moderate to advanced chondromalacia patella progressed from previous. No whitaker bchondral edema. 7. Fluid along the superficial and deep fibers of the medial collateral ligame nt can be seen with grade 1-2 injury. Normal LCL.
== END 2020-10-09 15:22 | disposition home or self-care (01) ==
LOC: RADSHAW 15:25
PROVIDERS: PCP Family Medicine; Visit Provider Specialist
DX: M17.12 Unilateral primary osteoarthritis, left knee (principal); M22.42 Chondromalacia patellae, left knee
CPT/HCPCS: 73721

== ENCOUNTER 2020-11-29 08:57 | Emergency (ER) | payer MEDICARE, SELFPAY ==
--- NOTE | 2020-11-29 09:01 | ECG_ITS ---
[facility] Test Date: 2020-11-29 Pat Name: Jones Rodríguez Department: Room: Gender: Male Occupational Therapist: : 1950 Requested By: Mary Montes De Oca Order Number: [id number] Gabrielle MD: Saima Nixon M.D. Measurements Intervals [place] Rate: 58 P: 20 VA: 199 QRS: 28 QRSD: 110 T: 30 QT: 413 QTc: 408 Interpretive Statements SINUS BRADYCARDIA Compared to ECG 09/30/2019 10:18:44 Intraventricular conduction delay no longer present Electronically Signed On 11-29-2020 20:48:26 CDT by Saima Nixon M.D. [id number]
--- NOTE | 2020-11-29 09:01 | XR_ITS ---
WS: [id number] Portable AP upright chest, 11/29/2020 Clinical Data: chest pain Comparison: Portal chest, 09/30/2019. Findings: No nodules, masses or effusions are seen. The heart is normal. The pulmonary vascularity is not increased. No pneumonia or pneumothorax is seen. The aortic arch and descending aorta are tortuo us. There is a recording device over the central chest. There are monitor leads on the chest wall. Th ere is osteoarthritic spurring of the left shoulder. XR/XR chest 1V portable [id number] Impression: Atherosclerosis.
[2020-11-29 09:05] VITALS: BP 149/86; PULSE 61; RESP 18; TEMP 36.8; O2SAT 100; BMI 32.7
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
--- NOTE | 2020-11-29 09:31 | CT_ITS ---
WS: [id number] CTA HEAD AND NECK TECHNIQUE: Contrast enhanced CTA of the head and neck with coronal and sagittal reformatted images an d maximum intensity projection (MIP) images. NASCET criteria utilized. CLINICAL INFORMATION: symptoms of acute stroke COMPARISON: None. DLP: 2171.[address] scans at [facility] use at least one of these dose optimization techniques: automat ed exposure control; mA and/or kV adjustment per patient size (includes targeted exams where dose is matched to clinical indication); or iterative reconstruction. FINDINGS: RIGHT: Right common carotid artery is patent. No significant right ICA stenosis. Right ICA is patent to the skull base. LEFT: Left common carotid artery is patent. No significant left ICA stenosis. Left ICA is patent to t he skull base. Codominant and patent vertebral arteries bilaterally. Proximal basilar artery is patent. INTRACRANIAL CTA: Both ICAs are patent at the skull base. Fusiform slightly ectatic right supraclinoid ICA without foca l aneurysm. Normal vascularity to the SOPHIA and MCA territories bilaterally. No evidence of high- grade proximal stenosis or aneurysm. Basilar artery is patent. Persistent right MANAGER INDUSTRIAL. Normal vascular ity to the MANAGER INDUSTRIAL territory bilaterally. Postoperative changes right orbit CT/CT angio headneck* [id number] IMPRESSION: 1. No significant ICA stenosis bilaterally. 2. Normal cowlitz of [place]. No evidence of flow-limiting stenosis 3. Mild fusiform dilatation of the right supraclinoid ICA likely incidental and unchanged from previous
--- NOTE | 2020-11-29 09:31 | CT_ITS ---
WS: [id number] CT HEAD TECHNIQUE: Noncontrast CT of the head obtained from the skullbase to the vertex. CLINICAL INFORMATION: Symptoms of Acute Stroke COMPARISON: September 30, 2019 DLP: 1064.[address] scans at [facility] use at least one of these dose optimization techniques: automat ed exposure control; mA and/or kV adjustment per patient size (includes targeted exams where dose is matched to clinical indication); or iterative reconstruction. FINDINGS: No evidence of intracranial hemorrhage or mass effect. Ventricular system and basal cisterns are underwood nt. Mild small vessel changes with mild parenchymal volume loss. No extra-axial fluid collections. No evidence of mass or mass effect. Normal hayward-white differentiation. Paranasal sinuses and mastoid air cells are well aerated. .Normal visualized soft tissues. Postoperat jailene changes right orbit CT/CT head wo con* [id number] IMPRESSION: 1. No evidence of intracranial hemorrhage or mass effect. 2. Mild small vessel changes. Mild parenchymal volume loss. 3. No acute intracranial findings. Notified Eugene Wesley DO at 11/29/2020 10:32 AM.
[2020-11-29 09:47] LABS: Basophils # 0.1 10^3/uL (0.0-0.1); Basophils % 1.1 %; Eosinophils # 0.2 10^3/uL (0.0-0.8); Eosinophils % 4.7 %; Hematocrit 41.5 % (42.0-52.0); Hemoglobin 14.1 g/dL (11.7-16.6); Lymphocytes # 1.4 10^3/uL (0.8-4.8); Lymphocytes % 30.7 %; Mean Corpuscular Hemoglobin 33.8 pg (28.0-34.0); Mean Corpuscular Volume 99.5 fL (80-94); Mean Platelet Volume 9.8 fL (7.4-10.4); Monocytes # 0.4 10^3/uL (0.2-0.9); Monocytes % 9.8 %; Neutrophils # 2.41 10^3/uL (1.8-7.7); Neutrophils % 53.5 %; Nucleated Red Blood Cells % 0 %; Platelet Count 194 10^3/cmm (130-400); Red Blood Count 4.17 10^6/uL (4.1-5.3); Red Cell Distribution Width 11.9 % (12.1-15.1); White Blood Count 4.5 10^3/uL (4.0-10.0)
[2020-11-29 10:04] LABS: INR 1.06 (0.8-1.2)
[2020-11-29 10:09] LABS: Alanine Aminotransferase 25 U/L (0-41); Albumin Level 4.1 g/dL (3.5-5.2); Alkaline Phosphatase 75 IU/L (40-130); Anion Gap 11.9 (5-19); Aspartate Amino Transferase 21 U/L (0-40); Blood Urea Nitrogen 16 mg/dL (8-23); Calcium 8.8 mg/dL (8.5-10.5); Carbon Dioxide 27 mmol/L (22-29); Chloride 105 mmol/L (98-107); Osmolality Calculated 292 mOsm/kg (285-295); Potassium 3.9 mmol/L (3.5-5.1); Sodium 140 mmol/L (136-145); Total Bilirubin 0.7 mg/dL (0.15-1.2)
[2020-11-29] MEDS: iohexol 350 mg/mL 100 mL Btl IV (10:26)
[2020-11-29 10:28] LABS: Glucose 122 mg/dL (65-115); Total Protein 6.1 g/dL (6.6-8.7); Troponin(5th) Baseline 17 ng/L (0-15)
[2020-11-29 10:48] LABS: Add Urine Microscopic? NO; Charge for UA Resulting for Rev
[2020-11-29 10:51] LABS: Bilirubin Urine Neg (Negative); Blood Urine Neg (Negative); Glucose Urine UA Norm (Normal); Ketones Urine Negative (Negative); Leukocyte Esterase Urine Negative (Negative); Nitrate Urine Negative (Negative); Protein Urine Neg (Negative); Specific Gravity, Urine 1.015 (1.005-1.030); Sulfosalicylic Acid Urine Negative (Negative); Urine Appearance Clear (CLEAR); Urine Color Yellow (Yellow); Urobilinogen Urine Norm (Negative); pH Urine 8 (5-7)
[2020-11-29 11:31] VITALS: BP 130/84; PULSE 60; RESP 20; O2SAT 100
[2020-11-29 11:51] VITALS: PULSE 51
[2020-11-29 12:16] VITALS: BP 139/81; PULSE 53; RESP 16; O2SAT 98
[2020-11-29 12:50] LABS: Troponin 5 2HR 12.78 ng/L (0-15)
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
--- NOTE | 2020-11-29 14:58 | DCPLANNER ---
corporate traffic manager was asked to schedule a follow up appointment for patient with primary care physician, Dr. Johns next week. corporate traffic manager called [facility], a follow up appointment was scheduled for Saturday, December 05, 2020 at 10:[address] Johns. corporate traffic manager informed patient of the scheduled appointment.
--- NOTE | 2021-02-13 09:01 | DCPLANNER ---
Patient had a follow up appointment scheduled for 12.05.20 with - patient did attend appointment.
== END 2020-11-29 12:17 | disposition home or self-care (01) ==
PROVIDERS: Physician Assistant; Emergency Provider Family Medicine; PCP Family Medicine
DX: F44.4 Conversion disorder with motor symptom or deficit (principal); F32.9 Major depressive disorder, single episode, unspecified; Z86.73 Personal history of transient ischemic attack (TIA), and cerebral infarction without residual deficits; Z79.82 Long term (current) use of aspirin; I25.10 Atherosclerotic heart disease of native coronary artery without angina pectoris; E78.5 Hyperlipidemia, unspecified; I10 Essential (primary) hypertension; Z87.891 Personal history of nicotine dependence
CPT/HCPCS: 70450; 70496; 70498; 71045; 80053; 81003; 84484; 85025; 85610; 85730; 93005; 99283; Q9967

== ENCOUNTER → 2021-06-26 12:05 | Outpatient (BNVA) | payer MEDICARE, SELFPAY | PROVIDERS: PCP Family Medicine; Visit Provider Internal Medicine Cardiovascular Disease | DX: E78.2 Mixed hyperlipidemia (principal); I10 Essential (primary) hypertension | CPT/HCPCS: 80061; 80076; 82550 ==

== ENCOUNTER 2021-08-12 07:51 | Outpatient (CLI) | payer MEDICARE, SELFPAY ==
--- NOTE | 2021-08-12 07:00 | CT_ITS ---
WS: [id number] CTA THORACIC TECHNIQUE: Contrast enhanced CTA of the thoracic aorta with coronal and sagittal reformatted images a nd maximum intensity projection (MIP) images. CLINICAL INFORMATION: I77.810 - Thoracic aortic ectasia COMPARISON: CTA 2018 DLP: 1586.[address] scans at [facility] use at least one of these dose optimization techniques: automated e xposure control; mA and/or kV adjustment per patient size (includes targeted exams where dose is matc hed to clinical indication); or iterative reconstruction. FINDINGS: Proximal main pulmonary arteries are normal. Stable ascending thoracic aortic aneurysm with a maximum dimension of 4.9 cm unchanged. Normal caliber descending thoracic aorta. Mild aortic calcification. Coronary calcification. No mediastinal or hilar lymphadenopathy. No axillary lymphadenopathy. Adrenal glands are normal. Right renal cyst measuring 3.6 cm unchanged. Tiny cysts and hepatic félix iomas in the liver unchanged. Hepatomegaly. Cavernous hemangiomas in the spleen. Normal GE junction. Hypertrophic changes and ankylosis thoracic spine. CT/CT angio chest [id number] IMPRESSION: 1. Stable ascending thoracic aortic aneurysm measuring 4.9 cm unchanged. 2. Normal caliber descending thoracic aorta. 3. Coronary calcification. 4. Both lungs are well aerated. No acute pulmonary infiltrates. 5. Proximal main pulmonary arteries are normal. 6. Stable previously described small hepatic cysts and hepatic and splenic cav ernous hemangiomas. 7. Ankylosis thoracic spine.
[2021-08-12 08:31] LABS: Blood Urea Nitrogen 19 mg/dL (8-23)
[2021-08-12] MEDS: iohexol 350 mg/mL 100 mL Btl IV (10:41)
== END 2021-08-12 07:52 | disposition home or self-care (01) ==
PROVIDERS: PCP Family Medicine; Visit Provider Internal Medicine Cardiovascular Disease
DX: I71.2 Thoracic aortic aneurysm, without rupture (principal); I25.10 Atherosclerotic heart disease of native coronary artery without angina pectoris; M43.24 Fusion of spine, thoracic region; K76.89 Other specified diseases of liver; D18.09 Hemangioma of other sites
CPT/HCPCS: 71275; 82565; 84520; Q9967

== ENCOUNTER 2021-10-13 10:20 | Emergency (ER) | payer MEDICARE, SELFPAY ==
[2021-10-13 10:32] VITALS: BP 109/77; PULSE 64; RESP 16; TEMP 36.6; O2SAT 97; BMI 32.1
--- NOTE | 2021-10-13 11:00 | XRR_ITS ---
PROCEDURE INFORMATION: Exam: XR Right Shoulder Exam date and time: 10/13/2021 10:13 AM Age: 70 years old Clinical indication: Injury or trauma; Fall; Blunt trauma (contusions or hematomas); Shoulder; Right; Additional info: Trauma/injury; Y view too please TECHNIQUE: Imaging protocol: XR Right shoulder. Views: 2 or more views. COMPARISON: None FINDINGS: Bones/joints: Evaluation is limited by positioning with absence of an externally rotated AP view. An additional AP externally rotated view is recommended for definitive evaluation. Anatomic alignment. Degenerative change. Soft tissues: Unremarkable. XR/XR shoulder RT min 2V* [id number] IMPRESSION: Evaluation is limited by positioning with absence of an externally rotated AP view. An additional AP externally rotated view is recommended for definitive evaluation.
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
--- NOTE | 2021-10-13 11:25 | XRR_ITS ---
PROCEDURE INFORMATION: Exam: XR Right Humerus Exam date and time: 10/13/2021 10:40 AM Age: 70 years old Clinical indication: Injury or trauma; Fall; Blunt trauma (contusions or hematomas); Shoulder; Right TECHNIQUE: Imaging protocol: XR Right humerus. Views: 2 or more views. COMPARISON: None FINDINGS: Bones/joints: No acute bony injury or malalignment in the visualized right humerus. Soft tissues: Unremarkable soft tissues. XR/[place] [id number] IMPRESSION: No acute bony injury or malalignment in the visualized right humerus.
[2021-10-13 12:06] VITALS: PULSE 67; RESP 16; O2SAT 96
== END 2021-10-13 12:07 | disposition home or self-care (01) ==
PROVIDERS: Emergency Provider Physician Assistant; PCP Family Medicine
DX: S49.91XA Unspecified injury of right shoulder and upper arm, initial encounter (principal); Z79.82 Long term (current) use of aspirin; W11.XXXA Fall on and from ladder, initial encounter; E78.5 Hyperlipidemia, unspecified; I10 Essential (primary) hypertension; Z86.73 Personal history of transient ischemic attack (TIA), and cerebral infarction without residual deficits; Z87.891 Personal history of nicotine dependence
CPT/HCPCS: 73030; 73060; 99282

== ENCOUNTER → 2021-11-18 10:29 | Outpatient (BNVA) | payer MEDICARE, SELFPAY | PROVIDERS: PCP Family Medicine; Referring Provider Family Medicine; Visit Provider Podiatrist Foot & Ankle Surgery | DX: M21.611 Bunion of right foot (principal); M19.171 Post-traumatic osteoarthritis, right ankle and foot; Z87.891 Personal history of nicotine dependence | CPT/HCPCS: 73610; 99203; 99204 ==

== ENCOUNTER 2021-11-19 06:46 | Outpatient (CLI) | payer MEDICARE, SELFPAY ==
--- NOTE | 2021-11-19 07:02 | USCV_ITS ---
Jones Rodríguez Age: 71 Gender: M : 1950 Exam Date: 11/19/2021 07:08 Ordering Phys: Waqar Johns MD Technologist: POONAM Exam Location: [facility] [place] Indication: TIA, Hypertension Risk Factors: Previous Vascular Surgery: Right Brachial BP: / Left Brachial BP: / Right Left Velocity (cm/s) Spectral Plaque Velocity (cm/s) Spectral Plaque Syst/Diast Broadening Syst/Diast Broadening 63.80/ 16.30 Prox CCA 57.50 / 15.60 57.70/ 16.00 Mid CCA 60.50 / 12.90 42.70/ 10.70 Distal CCA 55.60 / 13.70 30.70/ 11.80 Prox ICA 25.20 / 11.10 32.70/ 14.30 Mid ICA 34.70 / 10.70 35.80/ 15.90 Distal ICA 42.70 / 18.20 68.60 ECA 69.30 0.62 ICA/CCA 0.71 Antegrade Vertebral Antegrade 23.10/ 7.10 cm/s 34.20/ 10.10 cm/s Tri Subclavian Tri 64.10 91.50 CONCLUSIONS Right ICA stenosis <50%. Mild atheromatous plaque right carotid bulb/ICA. Left ICA stenosis <50%. Mild atheromatous plaque left carotid bulb/ICA. Normal antegrade Doppler flow noted in the right vertebral artery. Normal antegrade Doppler flow noted in the left vertebral artery. Michael Ramirez MD (Electronically Signed) Final Date: 19 November 2021 15:20 S
== END 2021-11-19 06:47 | disposition home or self-care (01) ==
LOC: RAD 06:47
PROVIDERS: PCP Family Medicine; Visit Provider Family Medicine
DX: G45.9 Transient cerebral ischemic attack, unspecified (principal); I10 Essential (primary) hypertension
CPT/HCPCS: 93880

== ENCOUNTER 2021-11-19 06:46 | Outpatient (CLI) | payer MEDICARE, SELFPAY ==
--- NOTE | 2021-11-19 07:05 | CT_ITS ---
WS: [id number] CT HEAD NONCONTRAST HISTORY: TIA, HTN TECHNIQUE: Contiguous axial imaging performed through the brain in 2.5 mm imaging. Bone and soft tiss ue windows. Sagittal and coronal reformats reviewed. All CT scans at [facility] use at least one of these dose optimization techniques: automated exposure control; mA and/or kV adjustment per pa tient size (includes targeted exams where dose is matched to clinical indication); or iterative recon struction. DLP: 1040.89 mGy.cm COMPARISON: 11/29/2020 No acute intracranial hemorrhage, midline shift or mass effect. Mild atrophy and mild small vessel ischemic disease. Similar to the prior study. No interval developm ent of an infarct or mass effect. No edema. Ventricles: Normal size with no hydrocephalus. Distal carotid arteries are ectatic and atherosclerotic. Similar to the prior study from 11/08/2018. Paranasal sinuses: As visualized are clear. Mastoid air cells: Well pneumatized. Calvarium and scalp: Skull is intact with no soft tissue edema or swelling. Calcified atrophic RIGHT globe similar to prior examinations. CT/CT head wo con* [id number] IMPRESSION: 1. No significant change in the mild atrophy and small vessel ischemic disease since 11/29/2020. 2. Ectatic distal carotid arteries similar to the prior study CT angiogram of 11/08/2018. 3. Patient may benefit from MRI brain with contrast to evaluate for lesions no t seen by CT.
== END 2021-11-19 06:47 | disposition home or self-care (01) ==
LOC: RAD 06:47
PROVIDERS: PCP Family Medicine; Visit Provider Family Medicine
DX: G45.9 Transient cerebral ischemic attack, unspecified (principal); I10 Essential (primary) hypertension; I65.23 Occlusion and stenosis of bilateral carotid arteries
CPT/HCPCS: 70450; 93880

== ENCOUNTER → 2021-12-25 09:59 | Outpatient (BNVA) | payer MEDICARE, SELFPAY | PROVIDERS: PCP Family Medicine; Visit Provider Internal Medicine Cardiovascular Disease | DX: I25.10 Atherosclerotic heart disease of native coronary artery without angina pectoris (principal); I77.810 Thoracic aortic ectasia; Z95.818 Presence of other cardiac implants and grafts; I10 Essential (primary) hypertension; E78.2 Mixed hyperlipidemia; G47.33 Obstructive sleep apnea (adult) (pediatric); Z87.891 Personal history of nicotine dependence | CPT/HCPCS: 99214 ==

== ENCOUNTER → 2022-03-26 12:55 | Outpatient (BNVA) | payer MEDICARE, SELFPAY | PROVIDERS: PCP Family Medicine; Visit Provider Podiatrist Foot & Ankle Surgery | DX: M21.611 Bunion of right foot (principal); M19.171 Post-traumatic osteoarthritis, right ankle and foot | CPT/HCPCS: 99213 ==

== ENCOUNTER → 2022-04-22 09:38 | Outpatient (BNVA) | payer MEDICARE, SELFPAY | PROVIDERS: PCP Family Medicine; Visit Provider Family Medicine | DX: R53.83 Other fatigue (principal); F80.81 Childhood onset fluency disorder; R42 Dizziness and giddiness; E78.2 Mixed hyperlipidemia; E78.5 Hyperlipidemia, unspecified; I10 Essential (primary) hypertension; E55.9 Vitamin D deficiency, unspecified | CPT/HCPCS: 80053; 82306; 82607; 84403; 84443; 84550; 85025; 86140 ==

== ENCOUNTER 2022-05-08 16:10 | Emergency (ER) | payer MEDICARE, SELFPAY ==
[2022-05-08 16:24] VITALS: BP 128/74; PULSE 66; RESP 16; TEMP 36.1; O2SAT 97; BMI 32.1
--- NOTE | 2022-05-08 16:33 | XR_ITS ---
WS: [id number] Right hand, 3 views, 05/08/2022 Clinical Data: laceration to distal end of index finger Comparison: Right hand, 10/08/2020 Findings: There is a soft tissue injury to the radial side of the ungual tuft of the distal phalanx o f the right third finger. No fractures or dislocations are seen. There is osteoarthritic narrowing of the PIP joints of the second through fifth fingers and slight narrowing of the DIP joints of the sec ond through fifth fingers. There is osteoarthritic change of the first through third MCP joints and t he right first finger IP joint. There is absence of the triquetrum. XR/XR hand RT min 3V* [id number] Impression: 1. Soft tissue injury to the radial side of the distal phalanx and ungual tuft of the right third finger. 2. Diffuse osteoarthritic changes.
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
[2022-05-08] MEDS: tetanus-dipt-pertussis 0.5 mL SDV IM (16:54)
[2022-05-08] MEDS: neomycin-poly-bacitracin oint 28 gm 1 APPLIC TOPICAL (17:24)
[2022-05-08] MEDS: cephALEXin 500 mg Capsule PO (17:25)
== END 2022-05-08 17:59 | disposition home or self-care (01) ==
PROVIDERS: Emergency Provider Physician Assistant; PCP Family Medicine
DX: S61.209A Unspecified open wound of unspecified finger without damage to nail, initial encounter (principal); Z79.82 Long term (current) use of aspirin; Z87.891 Personal history of nicotine dependence; I25.10 Atherosclerotic heart disease of native coronary artery without angina pectoris; E78.5 Hyperlipidemia, unspecified; I10 Essential (primary) hypertension; Z86.73 Personal history of transient ischemic attack (TIA), and cerebral infarction without residual deficits; Z23 Encounter for immunization; W27.8XXA Contact with other nonpowered hand tool, initial encounter
CPT/HCPCS: 73130; 90471; 90715; 99283

== ENCOUNTER → 2022-07-09 09:42 | Outpatient (BNVA) | payer MEDICARE, SELFPAY | PROVIDERS: PCP Family Medicine; Visit Provider Internal Medicine Cardiovascular Disease | DX: R53.1 Weakness (principal); E78.2 Mixed hyperlipidemia; I10 Essential (primary) hypertension; I25.10 Atherosclerotic heart disease of native coronary artery without angina pectoris; G47.33 Obstructive sleep apnea (adult) (pediatric); I63.89 Other cerebral infarction; I71.60 Thoracoabdominal aortic aneurysm, without rupture, unspecified; Z86.73 Personal history of transient ischemic attack (TIA), and cerebral infarction without residual deficits; Z87.891 Personal history of nicotine dependence; I45.89 Other specified conduction disorders; R00.1 Bradycardia, unspecified | CPT/HCPCS: 99214 ==

== ENCOUNTER 2022-07-11 15:32 | Emergency (ER) | payer MEDICARE, SELFPAY ==
[2022-07-11 16:07] VITALS: BP 146/88; PULSE 65; RESP 13; TEMP 36.7; O2SAT 96; BMI 32.1
--- NOTE | 2022-07-11 16:13 | XRR_ITS ---
PROCEDURE INFORMATION: Exam: XR Right Finger(s) Exam date and time: 07/11/2022 4:17 PM Age: 71 years old Clinical indication: Injury or trauma; Other: Laceration; Finger; Right; Thumb; Additional info: Thumb laceration TECHNIQUE: Imaging protocol: Radiologic exam of the Right fingers. Views: Minimum 2 views. COMPARISON: CR XR hand RT min 3V* [id number] 05/08/2022 4:45 PM FINDINGS: Bones/joints: There is a fracture of the distal phalanx of the thumb. There is degenerative change of the interphalangeal joint of the 1st metacarpophalangeal joint. Soft tissues: Soft tissue laceration of the distal volar aspect of the thumb. No radiopaque foreign body demonstrated in the soft tissues. XR/XR finger RT min 2V [id number] IMPRESSION: 1. Soft tissue laceration of the distal volar aspect of the thumb. No radiopaque foreign body associated. 2. There is a fracture of the distal phalanx of the thumb. This fracture appears related to the overlying soft tissue laceration.
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
== END 2022-07-11 16:49 | disposition home or self-care (01) ==
PROVIDERS: Emergency Provider Physician Assistant; PCP Family Medicine
DX: S62.521B Displaced fracture of distal phalanx of right thumb, initial encounter for open fracture (principal); Z79.82 Long term (current) use of aspirin; Z87.891 Personal history of nicotine dependence; E78.5 Hyperlipidemia, unspecified; I10 Essential (primary) hypertension; Z86.73 Personal history of transient ischemic attack (TIA), and cerebral infarction without residual deficits; W27.0XXA Contact with workbench tool, initial encounter
CPT/HCPCS: 12002; 73140; 99283

== ENCOUNTER 2022-10-21 09:24 | Observation (INO) | payer MEDICARE, SELFPAY ==
[2022-10-21] VITALS (8 sets, daily range): BP systolic 108–125; BP diastolic 65–83; PULSE 49–70; RESP 14–24; TEMP 36.3–37.3; O2SAT 91–97; BMI 19.6
--- NOTE | 2022-10-21 09:30 | XR_ITS ---
WS: [id number] Exam: XR chest 1V portable [id number] Date/Time of Exam: 10/21/2022 10:08 AM Reason For Exam: dyspnea/cough Comparison 11/29/2020. The lungs are clear and fully inflated. Normal cardiomediastinal silhouette. No pleural effusions. Sm all battery pack superimposes the left heart border. Bony structures are intact. DJD of the right benigno sudheer. XR/XR chest 1V portable [id number] IMPRESSION: 1. No acute cardiopulmonary finding. No change.
--- NOTE | 2022-10-21 09:30 | ECG_ITS ---
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 Measurements Intervals [place] Rate: 60 P: 18 MS: 182 QRS: 14 QRSD: 117 T: 9 QT: 416 QTc: 417 Interpretive Statements SINUS RHYTHM MODERATE INTRAVENTRICULAR CONDUCTION DELAY [110+ ms QRS DURATION] Compared to ECG 11/29/2020 09:31:25 Intraventricular conduction delay now present Sinus bradycardia no longer present Electronically Signed On 10-22-2022 0:24:27 CDT by Saima Nixon M.D. [id number]
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
[2022-10-21 09:44] LABS: Basophils # 0.1 10^3/uL (0.0-0.1); Eosinophils # 0.2 10^3/uL (0.0-0.8); Eosinophils % 3.4 %; Hematocrit 39.5 % (42.0-52.0); Hemoglobin 13.5 g/dL (11.7-16.6); Lymphocytes # 1.8 10^3/uL (0.8-4.8); Lymphocytes % 30.4 %; Mean Corpuscular HGB Conc 34.2 g/dL (30.0-36.0); Mean Corpuscular Hemoglobin 33.5 pg (28.0-34.0); Mean Platelet Volume 9.7 fL (7.4-10.4); Monocytes # 0.7 10^3/uL (0.2-0.9); Monocytes % 11.7 %; Neutrophils % 53.3 %; Nucleated Red Blood Cells % 0 %; Platelet Count 211 10^3/cmm (130-400); Red Blood Count 4.03 10^6/uL (4.1-5.3); Red Cell Distribution Width 11.7 % (12.1-15.1); White Blood Count 5.8 10^3/uL (4.0-10.0)
[2022-10-21 10:01] LABS: Alanine Aminotransferase 13 U/L (0-41); Albumin Level 3.9 g/dL (3.5-5.2); Alkaline Phosphatase 77 U/L (40-130); Anion Gap 15.2 (5-19); Aspartate Amino Transferase 14 U/L (0-40); Blood Urea Nitrogen 16 mg/dL (8-23); Calcium 9.3 mg/dL (8.5-10.5); Carbon Dioxide 24 mmol/L (22-29); Chloride 103 mmol/L (98-107); Globulin 2.5 g/dL (1.3-4.6); Glucose 118 mg/dL (65-115); Osmolality Calculated 288 mOsm/kg (285-295); Potassium 4.2 mmol/L (3.5-5.1); Sodium 138 mmol/L (136-145); Total Bilirubin 0.6 mg/dL (0.15-1.2); Total Protein 6.4 g/dL (6.6-8.7)
[2022-10-21 10:04] LABS: Troponin(5th) Baseline 11 ng/L (0-15)
[2022-10-21 11:25] LABS: Add Urine Microscopic? NO; Charge for UA Resulting for Rev
[2022-10-21 11:35] LABS: Bilirubin Urine Neg (Negative); Blood Urine Neg (Negative); Glucose Urine UA Norm (Normal); Ketones Urine Negative (Negative); Leukocyte Esterase Urine Negative (Negative); Nitrate Urine Negative (Negative); Protein Urine Neg (Negative); Urine Appearance Clear (CLEAR); Urine Color Yellow (Yellow); Urobilinogen Urine Neg (Negative); pH Urine 7 (5-7)
--- NOTE | 2022-10-21 11:38 | ECG_ITS ---
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 Measurements Intervals [place] Rate: 51 P: 18 MD: 196 QRS: 16 QRSD: 113 T: 17 QT: 439 QTc: 408 Interpretive Statements SINUS BRADYCARDIA MODERATE INTRAVENTRICULAR CONDUCTION DELAY [110+ ms QRS DURATION] Compared to ECG 11/29/2020 09:31:25 Intraventricular conduction delay now present Electronically Signed On 10-22-2022 0:48:38 CDT by Saima Nixon M.D. [id number]
[2022-10-21 11:41] LABS: Troponin 5 2HR 9.99 ng/L (0-15)
[2022-10-21 12:16] LABS: Troponin 5 2HR Delta -1.01 ABS# (0-10)
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
--- NOTE | 2022-10-21 15:30 | ECG_ITS ---
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 Measurements Intervals [place] Rate: 56 P: 35 [place]: 209 QRS: 48 QRSD: 110 T: 17 QT: 438 QTc: 426 Interpretive Statements SINUS BRADYCARDIA Compared to ECG 10/21/2022 11:38:14 Intraventricular conduction delay no longer present Electronically Signed On 10-22-2022 0:52:29 CDT by Saima Nixon M.D. [id number]
[2022-10-21] MEDS: sodium chloride 0.9% 1,000 ML 75 ML IV (15:58)
[2022-10-21 16:02] LABS: D Dimer 0.64 ug/mIFEU (0-0.59)
[2022-10-21 16:16] LABS: Thyroid Stimulating Hormone 1.01 uIU/mL (0.27-4.20)
[2022-10-21 17:04] LABS: Troponin 5 6HR 9.69 ng/L (0-15)
[2022-10-21 17:10] LABS: Troponin 5 6HR Delta -1.31 ng/L (0-12)
[2022-10-22 03:49] VITALS: BP 115/70; PULSE 59; RESP 19; TEMP 36.9; O2SAT 93
[2022-10-22 04:10] LABS: Anion Gap 13.9 (5-19); Blood Urea Nitrogen 16 mg/dL (8-23); Calcium 8.9 mg/dL (8.5-10.5); Carbon Dioxide 23 mmol/L (22-29); Chloride 109 mmol/L (98-107); Glucose 104 mg/dL (65-115); Osmolality Calculated 295 mOsm/kg (285-295); Phosphorus 3.3 mg/dL (2.5-4.5); Potassium 3.9 mmol/L (3.5-5.1); Sodium 142 mmol/L (136-145)
[2022-10-22] MEDS: sodium chloride 0.9% 1,000 ML 75 ML IV (04:24)
[2022-10-22 07:17] VITALS: BP 118/67; PULSE 64; RESP 18; TEMP 36.7; O2SAT 95
[2022-10-22 08:00] VITALS: PULSE 64; RESP 16; O2SAT 94
--- NOTE | 2022-10-22 09:43 | USCV_ITS ---
Jones Rodríguez Age: 71 Gender: M : 1950 Exam Date: 10/22/2022 11:05 Ordering Phys: Roseanna Walls MD Technologist: ANIKA [place] [facility] [place]: syncope BP: 125 / 80 HR: 64 Rhythm: Sinus Technical Quality: Adequate MEASUREMENTS (Male / Female) Normal Values 2D ECHO LV Diastolic Diameter PLAX 5.4 cm 4.2 - 5.9 / 3.9 - 5.3 cm LV Systolic Diameter PLAX 4.2 cm IVS Diastolic Thickness 1.7 cm 0.6 - 1.0 / 0.6 - 0.9 cm IVS Systolic Thickness 2.3 cm LVPW Diastolic Thickness 0.9 cm 0.6 - 1.0 / 0.6 - 0.9 cm LVPW Systolic Thickness 1.8 cm LVOT Diameter 2.2 cm LV Ejection Fraction 2D Teich 44.3 % LV Ejection Fraction MOD 2C 81.7 % LV Ejection Fraction 2C AL 84.4 % LA Diameter 3.2 cm LA Width 3.8 cm LA Height 4.2 cm RA Width 2.1 cm RA Height 3.4 cm Aorta at Sinotubular Diameter 3.4 cm IVC Diameter 1.8 cm M-MODE MV E Point Septal Separation 0.7 cm DOPPLER AV Peak Velocity 113.0 cm/s LVOT Peak Velocity 138.0 cm/s AV Area Cont Eq vti 4.2 cm squared AV Area Cont Eq pk 4.6 cm squared MV Peak Velocity 103.0 cm/s MV Area PHT 3.6 cm squared Mitral E to A Ratio 0.8 MV E' Velocity 42.0 cm/s Mitral E to MV E' Ratio 14.4 Mitral E to LV E' Lateral Ratio 12.4 Mitral E to LV E' Septal Ratio 17.3 TR Peak Velocity 106.0 cm/s TR Peak Gradient 4.5 mmHg Right Atrial Pressure 3.0 mmHg Pulmonary Artery Systolic Pressu 7.5 mmHg PV Peak Velocity 90.0 cm/s RV Acceleration Time 0.2 s RV Ejection Time 0.4 s RV AcT/ET 0.4 FINDINGS Left Ventricle Left ventricle is normal in size. LV systolic function is normal with EF of 60-65%. No regional wall motion abnormalities. Grade 1 diastolic dysfunction Right Ventricle Normal in size and function Right Atrium Normal in size Left Atrium Normal in size Mitral Valve Structurally normal mitral valve. Trace mitral regurgitation. Aortic Valve Aortic valve is thickened. No significant stenosis. Mild aortic regurgitation. Tricuspid Valve Mild tricuspid regurgitation. Insufficient TR jet to calculate RVSP Pulmonic Valve Not well visualized. Mild pulmonic regurgitation. Pericardium Normal Aorta Normal in size IVC Appears to be normal CONCLUSIONS LV systolic function is normal with EF of 55-60% Grade 1 diastolic dysfunction Trace mitral regurgitation Mild aortic regurgitation Mild tricuspid regurgitation Mild pulmonic regurgitation Compared to prior echocardiogram from 02/13/2020, no significant changes are seen Graham Medina MD (Electronically Signed) Final Date: 22 October 2022 17:05 S
--- NOTE | 2022-10-22 09:44 | PM.DCS ---
Discharge Providers Date of Admission: 10/21/22 14:00 Date of Discharge: October 22, 2022 Attending Provider at Admission: Roseanna Walls MD Attending Provider at Discharge: Roseanna Walls MD Primary Care Provider: Waqar Johns MD Diagnoses at Discharge Discharge Diagnosis (1) Bradycardia: Status: Acute (2) Hypotension: Status: Acute (3) Weakness: Status: Acute (4) Arthritis of carpometacarpal (CMC) joint of right thumb: Status: Acute Reason for Visit Reason for Visit: WEAKNESS/BRADYCARDIA Hospital Course Hospital Course 71 male who was sent from Dr. Johns's clinic for hypotension that was followed by bradycardia, lowest heart rate recorded was 130, systolic blood pressure around 70 mmHg, patient did well with conservative management, antihypertensive regimen and carvedilol discontinued, today at the time of discharge blood pressure 118/67 mmHg, pulse is 64, it has been ranging between 58 to upper 60s. Patient has remained asymptomatic in the hospital no chest pain shortness of breath confusion or dizziness. He is ambulating on his own. I have requested echo before his discharge and Dr. Nixon recommended outpatient stress test. EKG showing sinus bradycardia, troponins unremarkable. TSH normal. Potassium 3.9, magnesium 2.0. I have asked patient to avoid taking naproxen for his joint pains and use Tylenol instead Physical Exam Narrative: Awake and alert GCS 15 S1, S2 Pleasant and cooperative Euvolemic Discharge Data Studies Completed and Pending Completed Studies During Hospitalization Category Date Time Status XR chest 1V portable [id number] Stat Exams 10/21/22 09:30 Completed Pending at discharge Category Date Time Status CV. echo complete* [id number] Stat Ultrasound 10/22/22 09:43 Ordered Radiology Impressions Chest X-Ray 10/21/22 09:30 IMPRESSION: 1. No acute cardiopulmonary finding. No change. Laboratory Results WBC 5.8 10^3/uL (4.0-10.0) 10/21/22 09:12 RBC 4.03 10^6/uL (4.1-5.3) L 10/21/22 09:12 Hgb 13.5 g/dL (11.7-16.6) 10/21/22 09:12 Hct 39.5 % (42.0-52.0) L 10/21/22 09:12 MCV 98.0 fl (80-94) H 10/21/22 09:12 MCH 33.5 pg (28.0-34.0) 10/21/22 09:12 MCHC 34.2 g/dL (30.0-36.0) 10/21/22 09:12 RDW 11.7 % (12.1-15.1) L 10/21/22 09:12 Plt Count 211 10^3/cmm (130-400) 10/21/22 09:12 MPV 9.7 fL (7.4-10.4) 10/21/22 09:12 Neut % (Auto) 53.3 % 10/21/22 09:12 Lymph % (Auto) 30.4 % 10/21/22 09:12 [place] % (Auto) 11.7 % 10/21/22 09:12 Eos % (Auto) 3.4 % 10/21/22 09:12 Baso % (Auto) 1.0 % 10/21/22 09:12 Neut # (Auto) 3.10 10^3/uL (1.8-7.7) 10/21/22 09:12 Lymph # (Auto) 1.8 10^3/uL (0.8-4.8) 10/21/22 09:12 [place] # (Auto) 0.7 10^3/uL (0.2-0.9) 10/21/22 09:12 Eos # (Auto) 0.2 10^3/uL (0.0-0.8) 10/21/22 09:12 Baso # (Auto) 0.1 10^3/uL (0.0-0.1) 10/21/22 09:12 Nucleated RBC % (auto) 0 % 10/21/22 09:12 Nucleated RBCs # 0.0 /100WBC 10/21/22 09:12 D-Dimer 0.64 ug/mIFEU (0-0.59) H 10/21/22 09:12 Sodium 142 mmol/L (136-145) 10/22/22 03:36 Potassium 3.9 mmol/L (3.5-5.1) 10/22/22 03:36 Chloride 109 mmol/L (98-107) H 10/22/22 03:36 Carbon Dioxide 23 mmol/L (22-29) 10/22/22 03:36 Anion Gap 13.9 (5-19) 10/22/22 03:36 BUN 16 mg/dL (8-23) 10/22/22 03:36 Creatinine 0.8 mg/dL (0.7-1.2) 10/22/22 03:36 GFR Calculation Not Reportable 10/22/22 03:36 Glucose 104 mg/dL (65-115) 10/22/22 03:36 Calculated Osmolality 295 mOsm/kg (285-295) 10/22/22 03:36 Calcium 8.9 mg/dL (8.5-10.5) 10/22/22 03:36 Phosphorus 3.3 mg/dL (2.5-4.5) 10/22/22 03:36 Magnesium 2.0 mg/dL (1.7-2.3) 10/22/22 03:36 Total Bilirubin 0.6 mg/dL (0.15-1.2) 10/21/22 09:12 AST 14 U/L (0-40) 10/21/22 09:12 ALT 13 U/L (0-41) 10/21/22 09:12 Alkaline Phosphatase 77 U/L (40-130) 10/21/22 09:12 Troponin T Baseline 11 ng/L (0-15) 10/21/22 09:12 Troponin T 120 Minute 9.99 ng/L (0-15) 10/21/22 11:16 Delta Troponin T -1.01 ABS# (0-10) L 10/21/22 11:16 Troponin T Hi Sens 6Hr 9.69 ng/L (0-15) 10/21/22 15:28 Troponin T Hi Sens 6Hr Delta -1.31 ng/L (0-12) L 10/21/22 15:28 Total Protein 6.4 g/dL (6.6-8.7) L 10/21/22 09:12 Albumin 3.9 g/dL (3.5-5.2) 10/21/22 09:12 Globulin 2.5 g/dL (1.3-4.6) 10/21/22 09:12 TSH 1.01 uIU/mL (0.27-4.20) 10/21/22 11:16 Urine Color Yellow (Yellow) 10/21/22 11:15 Urine Appearance Clear (CLEAR) 10/21/22 11:15 Urine pH 7 (5-7) 10/21/22 11:15 Ur Specific [place] 1.010 (1.005-1.030) 10/21/22 11:15 Urine Protein Neg (Negative) 10/21/22 11:15 Urine Glucose (UA) Norm (Normal) 10/21/22 11:15 Urine Ketones Negative (Negative) 10/21/22 11:15 Urine Blood Neg (Negative) 10/21/22 11:15 Urine Nitrate Negative (Negative) 10/21/22 11:15 Urine Bilirubin Neg (Negative) 10/21/22 11:15 Urine Urobilinogen Neg mg/dL (Negative) 10/21/22 11:15 Ur Leukocyte Esterase Negative (Negative) 10/21/22 11:15 Vitals Last Vital Signs Temp 98.1 F 10/22/22 07:17 Pulse 64 10/22/22 08:00 Resp 16 10/22/22 08:00 BP 118/67 10/22/22 07:17 Pulse Ox 94 10/22/22 08:00 O2 Del Method 10/22/22 08:00 Discharge Plan Discharge Patient Disposition: Home Condition: Stable Prescriptions: Continued aspirin 81 mg tablet,delayed release (DR/EC) 81 mg PO QAM multivitamin Tablet 1 tab PO DAILY@0800 cholecalciferol (vitamin D3) 3,000 unit tablet 2,000 unit PO DAILY@0800 benzonatate 100 mg capsule 100 mg PO TID PRN (Reason: cough) Qty: 45 11RF turmeric 400 mg Capsule 400 mg PO DAILY@0800 flaxseed oil 1,000 mg Capsule 1,000 mg PO BEDTIME@20 Fish Oil Concentrate 1,000 mg Capsule 1,000 mg PO BID Discontinued naproxen 500 mg tablet 500 mg PO BID PRN (Reason: Pain) carvedilol 12.5 mg tablet 12.5 mg PO BID Qty: 180 3RF lisinopril 20 mg tablet 20 mg PO BID amlodipine 2.5 mg tablet 2.5 mg PO QAM Discharge Orders: Discharge Order (Routine); Ordered 10/22/22 Ordered By: Roseanna Walls Other Ambulatory Orders: NM ortega perf SPECT stress 12230 (Routine) Timeframe: 1 Day Facility: [facility] - Location: Radiology Ordered By: Roseanna Walls Referrals: Saima Nixon MD [Physician] - 2 weeks Waqar Johns MD [Primary Care Provider] - 10/30/22 1:10 pm Discharge Diet: Cardiac Discharge Activity: Increase activity as tolerated Patient Instructions: Opioid Safety Discharge Attestations Time Spent in Discharge Care*: less than 30 min Quality Metrics Clinical Quality Measures [ No reported AMI, CVA or VTE this stay] Coding Level of Care Code Acute Code for Chg Fwd Diagnoses Bradycardia R00.1 Hypotension I95.9 Weakness R53.1 Arthritis of carpometacarpal (CMC) joint of right thumb M18.11
[2022-10-22] MEDS: aspirin 81 mg EC Tablet PO (10:07)
[2022-10-22 11:32] VITALS: BP 115/75; PULSE 68; RESP 16
[2022-10-22 12:19] VITALS: BP 146/90; PULSE 61; RESP 16
== END 2022-10-22 12:19 | disposition home or self-care (01) ==
LOC: ER 09:37 → CSU 15:33
PROVIDERS: Admitting Provider Internal Medicine; Emergency Provider Family Medicine; PCP Family Medicine; Visit Provider Internal Medicine
DX: R00.1 Bradycardia, unspecified (principal); I95.9 Hypotension, unspecified; R53.1 Weakness; M18.11 Unilateral primary osteoarthritis of first carpometacarpal joint, right hand; E78.5 Hyperlipidemia, unspecified; I10 Essential (primary) hypertension; G47.33 Obstructive sleep apnea (adult) (pediatric); Z86.73 Personal history of transient ischemic attack (TIA), and cerebral infarction without residual deficits; Z87.891 Personal history of nicotine dependence
CPT/HCPCS: 36415; 71045; 80048; 80053; 81003; 83735; 84100; 84443; 84484; 85025; 85378; 93005; 93306; 99285; G0378; J7030

== ENCOUNTER → 2022-10-29 14:01 | Outpatient (BNVA) | payer MEDICARE, SELFPAY | PROVIDERS: PCP Family Medicine; Visit Provider Nurse Practitioner Family | DX: I25.10 Atherosclerotic heart disease of native coronary artery without angina pectoris (principal); I10 Essential (primary) hypertension; Z95.818 Presence of other cardiac implants and grafts; Z87.891 Personal history of nicotine dependence; R53.83 Other fatigue | CPT/HCPCS: 99214 ==

== ENCOUNTER → 2022-10-30 12:50 | Outpatient (BNVA) | payer MEDICARE, SELFPAY | PROVIDERS: PCP Family Medicine; Visit Provider Family Medicine | DX: R53.83 Other fatigue (principal); M19.90 Unspecified osteoarthritis, unspecified site; I95.9 Hypotension, unspecified; M79.10 Myalgia, unspecified site | CPT/HCPCS: 82306; 82607; 83735; 84550; 85651; 86140; 86160; 86162; 86235; 86255; 86376; 86618; 86666; 86757 ==

== ENCOUNTER 2022-11-17 10:06 | Outpatient (CLI) | payer MEDICARE, SELFPAY ==
--- NOTE | 2022-11-17 | ECG_ITS ---
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 Interpretive Statements NAME OF STUDY: LEXISCAN SESTAMIBI STRESS TEST INDICATION: Weakness, fatigue, bradycardia PROCEDURE: At the baseline, the EKG revealed sinus bradycardia with a normal ST Ts. The baseline heart was 56 bpm with a blood pressue of 146/98 mm of Hg Lexiscan was infused over a period of 20 seconds. A total of 0.4 milligrams of Lexiscan was infused. The stress phase was continued for a total of 5 minutes. Heart rate at the end of the stress phase was 70 bpm with a blood pressure 139/93 mm of Hg. The EKG at the peak infusion revealed no significant changes. Sestamibi was injected 20 seconds after the Lexiscan infusion. Heart rate at the end of the recovery phase was 66 bpm with a blood pressure of 139/91 mm of Hg. CONCLUSION: 1. No significant EKG changes with the LexiScan infusion 2. No LexiScan induced chest pain or cardiac arrhythmia 3. Normal blood pressure and heart rate response 4. Sestamibi/sestamibi perfusion scan pending; see separate report. Electronically Signed On 11-22-2022 19:35:46 CDT by Saima Nixon M.D. [email or web address]
[2022-11-17 10:16] VITALS: BMI 32.5
--- NOTE | 2022-11-17 10:18 | NMCV_ITS ---
NM ortega perf SPECT r/s* [id number] Jones Rodríguez Age: 72 Gender: M : 1950 Exam Date: 11/17/2022 10:18 Ordering Phys: Bethany Lewis Technologist: ANA Roberts Exam Location: [facility] Indications: THORACIC AORTIC ECTASIA STRESS TEST [facility] IMAGE PROTOCOL Rest/Stress 1 Lexiscan Day Radiopharmaceutical Dose (mCi) Administration Site Administered by Rest: Tc-99m 10.9 IV ANA Orozco Sestamibi Stress:Tc-99m 32.5 IV ANA Orozco Sestamibi Rest: 17-Nov-2022 60 Discovery 630 Stress: 17-Nov-2022 30 Discovery 630 0.4mg Lexiscan. Images obtained in supine and prone position. SPECT RESULTS Technical Quality: Excellent Raw Data Analysis: Normal Image Corrections: No attenuation or motion correction applied Summed Stress Score: 0 Summed Rest Score: 0 Summed Difference Score: 0 PERFUSION FINDINGS Uniform myocardial tracer uptake with no significant perfusion abnormalities FUNCTIONAL RESULTS (calculated via Gated SPECT) Stress Image LV EF (%): 56 Stress EDV (mL):140 TID: 0.96 Stress ESV (mL):62 FUNCTIONAL FINDINGS: Segmental wall motion analysis revealing no gross wall motion abnormalities IMPRESSIONS 1. Myocardial perfusion imaging revealing no significant perfusion abnormalities. 2. Normal LV ejection fraction of 56%. 3. LV wall motion analysis revealing no gross wall motion abnormalities. 4. Mildly dilated LV cavity with an end-systolic volume of 62 mL. Low probability for coronary ischemia, based on the above findings Dr Saima Nixon MD [facility] (Electronically Signed) Final Date: 17 November 2022 17:06 S
[2022-11-17] MEDS: regadenoson 0.4 Mg/5 ml Syringe IVP (12:12)
[2022-11-17 12:35] VITALS: BP 139/91; PULSE 66
== END 2022-11-17 10:07 | disposition home or self-care (01) ==
LOC: CDL 10:08
PROVIDERS: PCP Family Medicine; Visit Provider Nurse Practitioner Family
DX: R53.1 Weakness (principal); R53.83 Other fatigue; R00.1 Bradycardia, unspecified; I51.7 Cardiomegaly
CPT/HCPCS: 36415; 78452; 82306; 82607; 83735; 84550; 85651; 86140; 86160; 86162; 86235; 86255; 86376; 86618; 86666; 86757; 93017; 96374; A9500; J2785

== ENCOUNTER → 2023-01-21 09:40 | Outpatient (BNVA) | payer MEDICARE, SELFPAY | PROVIDERS: PCP Family Medicine; Visit Provider Internal Medicine Cardiovascular Disease | DX: Z95.818 Presence of other cardiac implants and grafts (principal); I77.810 Thoracic aortic ectasia; I10 Essential (primary) hypertension; E78.2 Mixed hyperlipidemia; Z86.73 Personal history of transient ischemic attack (TIA), and cerebral infarction without residual deficits; Z87.891 Personal history of nicotine dependence | CPT/HCPCS: 99214 ==

== ENCOUNTER → 2023-02-06 17:10 | Outpatient (BNVA) | payer MEDICARE, SELFPAY | PROVIDERS: PCP Family Medicine; Visit Provider Internal Medicine Cardiovascular Disease | DX: Z45.09 Encounter for adjustment and management of other cardiac device (principal) | CPT/HCPCS: G2066 ==

== ENCOUNTER → 2023-05-19 08:44 | Outpatient (BNVA) | payer MEDICARE, SELFPAY | PROVIDERS: PCP Family Medicine; Visit Provider Family Medicine | DX: M19.90 Unspecified osteoarthritis, unspecified site; I10 Essential (primary) hypertension; E78.5 Hyperlipidemia, unspecified; M54.32 Sciatica, left side | CPT/HCPCS: 80053; 82607; 84443; 85025; 85651; 86140; 86160; 86162; 86235; 86255; 86376 ==

== ENCOUNTER 2023-06-11 14:43 | Outpatient (CLI) | payer MEDICARE, SELFPAY ==
--- NOTE | 2023-06-11 15:15 | MR_ITS ---
WS: [id number] MRI LUMBAR SPINE NONCONTRAST HISTORY: back pain/ sciatica COMPARISON: None available. TECHNIQUE: Sagittal and axial multisequence imaging is submitted. Curvature and increased lumbar lordosis. Disc spaces are desiccated and narrowed throughout the lumbar spine. Most significant degenerative ch anges are at L2-3. There is marrow edema within the L2 and L3 vertebral body which is probably reacti ve and degenerative. No fractures. Conus terminates normally at L1-2 disc level. L1-L2: Mild disc bulging and mild osteophytosis. No high-grade stenosis. L2-L3: Mild annular disc bulging with ligamentum flavum and facet arthritis. Mild disc encroachment u lee the central canal. Mild central, bilateral subarticular recess and foraminal stenosis. L3-L4: Mild annular disc bulging with ligamentum flavum and facet arthritis. Mild bilateral foraminal encroachment. L4-L5: Mild annular disc bulging with marked facet and ligamentum flavum arthritis. Trefoil appearanc e of the thecal sac. Mild to moderate central with bilateral subarticular recess and foraminal stenos is. L5-S1: Diffuse annular disc bulging with osteophytic ridging. Mild facet arthritis. Moderate bilatera l foraminal stenosis due to combination of disc and osteophyte disease. No central stenosis. Mild sub articular recess encroachment. Bilateral renal cysts. IMPRESSION: 1. Advanced degenerative spondylitic changes throughout the lumbar spine. Most significant degenerati ve changes at L2-3 with additional marrow edema in the vertebral bodies. No acute fracture. 2. L4-5: Mild to moderate central with bilateral subarticular recess and foraminal stenosis. Greater stenosis LEFT foramen. 3. L5-S1: Moderate bilateral foraminal stenosis and mild subarticular recess encroachment. Disc osteo phyte encroachment into the foramina with contact on the L5 and S1 nerve roots. 4. L2-3: Mild central, bilateral subarticular recess and foraminal stenosis. 5. Mild bilateral foraminal encroachment at L3-4.
== END 2023-06-11 14:44 | disposition home or self-care (01) ==
LOC: RAD 14:44
PROVIDERS: PCP Family Medicine; Visit Provider Family Medicine
DX: M47.817 Spondylosis without myelopathy or radiculopathy, lumbosacral region (principal); M48.07 Spinal stenosis, lumbosacral region; M25.78 Osteophyte, vertebrae
CPT/HCPCS: 72148

== ENCOUNTER → 2023-07-01 12:43 | Outpatient (BNVA) | payer MEDICARE, SELFPAY | PROVIDERS: PCP Family Medicine; Visit Provider Internal Medicine Cardiovascular Disease | DX: Z45.09 Encounter for adjustment and management of other cardiac device (principal) | CPT/HCPCS: G2066 ==

== ENCOUNTER → 2023-07-31 09:50 | Outpatient (BNVA) | payer MEDICARE, SELFPAY | PROVIDERS: PCP Family Medicine; Visit Provider Specialist | DX: G62.89 Other specified polyneuropathies (principal); M54.30 Sciatica, unspecified side; G57.93 Unspecified mononeuropathy of bilateral lower limbs | CPT/HCPCS: 95909 ==

== ENCOUNTER → 2023-08-03 09:41 | Outpatient (BNVA) | payer MEDICARE, SELFPAY | PROVIDERS: PCP Family Medicine; Visit Provider Internal Medicine Cardiovascular Disease | DX: I25.10 Atherosclerotic heart disease of native coronary artery without angina pectoris (principal); E78.2 Mixed hyperlipidemia; I10 Essential (primary) hypertension; Z95.818 Presence of other cardiac implants and grafts; I77.810 Thoracic aortic ectasia; Z86.73 Personal history of transient ischemic attack (TIA), and cerebral infarction without residual deficits; Z87.891 Personal history of nicotine dependence | CPT/HCPCS: 99214 ==

== ENCOUNTER 2023-08-21 05:47 | Outpatient (CLI) | payer MEDICARE, SELFPAY ==
[2023-08-21 06:26] VITALS: BP 119/83; PULSE 67; RESP 16; TEMP 36.4; O2SAT 96; BMI 31.7
--- NOTE | 2023-08-21 06:57 | W.PM.OPSUD ---
Surgery/Procedure H&P Update DATE OF PROCEDURE: August 21, 2023 DATE H&P PERFORMED: 08/03/23 H&P UPDATE INFORMATION: I have reviewed H&P completed within last 30 days, I have examined patient prior to procedure and No changes to prior documentation PREOP DIAGNOSIS: ICM, EOL PRIMARY INDICATION FOR PROCEDURE: Patient had an ICM and has reached EOL PLANNED PROCEDURE: Operation Date: 08/21/23 07:00 Proposed Procedures p Loop Recorder Removal 00212,Z45.09(Not Applicable) - Saima Nixon MD PATIENT REASSESSED PRIOR TO SEDATION, WITH NO CHANGE NOTED: Yes PHYSICAL EXAM: alert, oriented x 3, clear to auscultation bilaterally and regular rate & rhythm AIRWAY EVAL/ANESTHESIA PLAN: normal airway, see other exam findings, ASA III, Monitored Anesthesia, Local Anesthesia, Risks, benefits & alternatives of sedation and/or procedure discussed and Patient agrees to continue as planned
--- NOTE | 2023-08-21 07:13 | PM.OP ---
Operative Report Date of procedure: August 21, 2023 Surgeon: Saima Nixon MD Procedure: LOCATION: Cardiopulmonary recovery unit REFERRING PROVIDER: Dr. Nixon PREOPERATIVE DIAGNOSIS: Cryptogenic stroke POSTOPERATIVE DIAGNOSIS: same ESTIMATED BLOOD LOSS: None COMPLICATIONS: None. BRIEF HISTORY: This is a 72-year-old white male with a history of cryptogenic stroke, had an ICM placement on 01/06/2020. Device has reached end-of-life. So it was decided to explant the device PROCEDURE: The procedure was explained to the patient in detail with the risks and benefits. The patient understood this well and consented to proceed. The patient was brought to the Cardiac [employer] Manager. The left side of the neck and the precordial region were cleaned and draped in a sterile fashion. 1% Xylocaine was used as local anesthetic agent. Patient was given 2 gm of Keflex by mouth, half an hour prior to the procedure A 1/3 inch long incision was made at the previous implantation scar. By sharp and blunt dissection, the alarm security or surveillance monitor pocket was accessed. The device was delivered from the pocket. Complete hemostasis was achieved. The skin was approximated with Steri-Strips EXPLANTED DEVICE: Reveal LINQ Model number: [id number] Serial number: [id number] Make: [employer] Pressure dressing was applied over the insertion site. The patient was transferred to the medical floor in stable condition.
== END 2023-08-21 05:48 | disposition home or self-care (01) ==
PROVIDERS: PCP Family Medicine; Visit Provider Internal Medicine Cardiovascular Disease
PROC: (CPT 33286; principal; 2023-08-21 07:00)
DX: Z45.09 Encounter for adjustment and management of other cardiac device (principal); Z86.73 Personal history of transient ischemic attack (TIA), and cerebral infarction without residual deficits; I25.10 Atherosclerotic heart disease of native coronary artery without angina pectoris; I10 Essential (primary) hypertension; G47.33 Obstructive sleep apnea (adult) (pediatric); E78.2 Mixed hyperlipidemia; I77.810 Thoracic aortic ectasia
CPT/HCPCS: 33286; C1769

== ENCOUNTER → 2023-09-11 15:22 | Outpatient (BNVA) | payer MEDICARE, SELFPAY | PROVIDERS: PCP Family Medicine; Referring Provider Family Medicine; Visit Provider Orthopaedic Surgery | DX: G89.29 Other chronic pain; M48.062 Spinal stenosis, lumbar region with neurogenic claudication | CPT/HCPCS: 72100; 99204 ==

== ENCOUNTER → 2023-11-24 08:02 | Outpatient (BNVA) | payer MEDICARE, SELFPAY | PROVIDERS: PCP Family Medicine; Visit Provider Podiatrist Foot & Ankle Surgery | DX: M76.61 Achilles tendinitis, right leg; M76.62 Achilles tendinitis, left leg; Z46.89 Encounter for fitting and adjustment of other specified devices | CPT/HCPCS: 73630; 97760; 99213; L4397 ==

== ENCOUNTER 2023-11-24 09:13 | Outpatient (CLI) | payer MEDICARE, SELFPAY | END 2023-11-24 09:14 | disposition home or self-care (01) | LOC: SPT 09:14 | PROVIDERS: PCP Family Medicine; Visit Provider Podiatrist Foot & Ankle Surgery | DX: Z46.89 Encounter for fitting and adjustment of other specified devices (principal); M76.61 Achilles tendinitis, right leg; M76.62 Achilles tendinitis, left leg | CPT/HCPCS: 97760; L4397 ==

== ENCOUNTER → 2023-12-01 13:29 | Outpatient (BNVA) | payer MEDICARE, SELFPAY | PROVIDERS: PCP Family Medicine; Visit Provider Family Medicine | DX: R63.4 Abnormal weight loss (principal); E78.2 Mixed hyperlipidemia; E11.9 Type 2 diabetes mellitus without complications | CPT/HCPCS: 80053; 83690; 84439; 84443; 85025; 85651; 86140 ==

== ENCOUNTER 2023-12-11 12:08 | Outpatient (CLI) | payer MEDICARE, SELFPAY ==
--- NOTE | 2023-12-11 14:00 | CT_ITS ---
WS: [id number] CT CHEST, ABDOMEN AND PELVIS WITH CONTRAST HISTORY: unexplained weight loss TECHNIQUE: Contiguous 5 mm axial imaging performed through the chest, abdomen and pelvis with IV cont rast, oral contrast has been provided. Coronal and sagittal reformats chest. Coronal and sagittal ref ormats through the abdomen and pelvis. All CT scans at [facility] use at least one of these d ose optimization techniques: automated exposure control; mA and/or kV adjustment per patient size (in cludes targeted exams where dose is matched to clinical indication); or iterative reconstruction. CONTRAST: Omnipaque 350; 100 mL IV. DLP: 1560.88 mGy.cm COMPARISON: 05/26/2019 and chest CTA 08/12/[address]: Mild pulmonary hyperexpansion. No pulmonary mass or nodule. No pneumonia. No pericardial or pleural effusions. Mild atherosclerosis aorta. Mildly dilated ascending thoracic aorta with a maximu m diameter of 4.5 cm. No increase in size of the ascending aorta. Normal caliber descending aorta. No rmal great vessel origins from the aorta. No mediastinal or hilar adenopathy. There is a small amount of oral contrast within the distal esophagus. Small hiatal hernia. Abdomen CT: Normal size liver. There are a few scattered low-attenuation masses which has been presen t on multiple prior studies. These may be cysts or hemangiomas. No new mass. No bile duct dilatation. Normal portal vein. Normal gallbladder and spleen. Mild pancreatic atrophy. No mass identified. No p ancreatic duct dilatation. No adrenal mass. Reidentified are bilateral renal cysts which have been described since 05/26/2019. Slight increase in size and number of the RIGHT renal cysts. New cyst superior pole LEFT kidney. No solid mass or obstr uction. Moderate atherosclerosis abdominal aorta. Mild narrowing origin celiac axis. Splenic artery c alcifications. Stomach is normally distended. No small bowel obstruction. Mild diffuse constipation. Normal appendix . No colon obstruction. No significant diverticular disease. No ascites. No adenopathy. Pelvic CT: No free fluid. Urinary bladder is nondistended. Bladder wall is thickened due to under dis tention. Prostate gland is enlarged and heterogeneous. Artifact from bilateral femoral ORIF. No destructive bone process. Anterior bridging osteophytes along the thoracic spine. Thoracic spine a nkylosis. CT/CT chest abdpel w/*[id number] IMPRESSION: 1. Mild chronic emphysema. No mass or nodules. No adenopathy. 2. Stable mild dilatation of the ascending thoracic aorta, 4.5 cm. 3. Stable hepatic cyst. Additional renal cysts are reidentified. Some of these have increased slightly in size. There is no renal obstruction. 4. Atherosclerosis aorta. 5. Very mild stenosis involving the proximal celiac axis. 6. Diffuse constipation. No obstructive lesion. 7. Prostate enlargement. 8. No ascites or adenopathy.
[2023-12-11] MEDS: iohexol 350 mg/mL 100 mL Btl PO (15:49)
[2023-12-11] MEDS: iohexol 350 mg/mL 100 mL Btl IV (15:49)
== END 2023-12-11 12:09 | disposition home or self-care (01) ==
PROVIDERS: PCP Family Medicine; Visit Provider Family Medicine
DX: R74.8 Abnormal levels of other serum enzymes (principal); R63.4 Abnormal weight loss; J43.9 Emphysema, unspecified; I77.810 Thoracic aortic ectasia; K76.89 Other specified diseases of liver; N28.1 Cyst of kidney, acquired; N40.0 Benign prostatic hyperplasia without lower urinary tract symptoms; K44.9 Diaphragmatic hernia without obstruction or gangrene; K86.89 Other specified diseases of pancreas; M25.78 Osteophyte, vertebrae; M43.24 Fusion of spine, thoracic region; K59.00 Constipation, unspecified
CPT/HCPCS: 71260; 74177; Q9967

== ENCOUNTER → 2023-12-17 14:02 | Outpatient (BNVA) | payer MEDICARE, SELFPAY | PROVIDERS: PCP Family Medicine; Visit Provider Family Medicine | DX: R74.8 Abnormal levels of other serum enzymes (principal); R63.4 Abnormal weight loss; N40.0 Benign prostatic hyperplasia without lower urinary tract symptoms | CPT/HCPCS: 83690; 84153 ==

== ENCOUNTER → 2023-12-30 07:59 | Outpatient (BNVA) | payer MEDICARE, SELFPAY | PROVIDERS: PCP Family Medicine; Visit Provider Podiatrist Foot & Ankle Surgery | DX: M76.61 Achilles tendinitis, right leg (principal); M76.62 Achilles tendinitis, left leg | CPT/HCPCS: 99213 ==

== ENCOUNTER → 2024-02-01 09:22 | Outpatient (BNVA) | payer MEDICARE, SELFPAY | PROVIDERS: PCP Family Medicine; Visit Provider Internal Medicine Cardiovascular Disease | DX: I25.10 Atherosclerotic heart disease of native coronary artery without angina pectoris (principal); E78.2 Mixed hyperlipidemia; I10 Essential (primary) hypertension; I77.810 Thoracic aortic ectasia; J45.20 Mild intermittent asthma, uncomplicated; Z87.891 Personal history of nicotine dependence | CPT/HCPCS: 99214 ==

== ENCOUNTER 2024-04-27 07:54 | Outpatient (CLI) | payer MEDICARE, SELFPAY | END 2024-04-27 07:55 | disposition home or self-care (01) | PROVIDERS: PCP Family Medicine; Visit Provider Family Medicine | DX: R05.9 Cough, unspecified (principal); R94.2 Abnormal results of pulmonary function studies | CPT/HCPCS: 94010; 94726; 94729 ==

== ENCOUNTER 2024-05-24 13:51 | Outpatient (CLI) | payer MEDICARE, SELFPAY ==
--- NOTE | 2024-05-24 14:30 | MR_ITS ---
WS: [id number] MRI HEAD WITH CONTRAST TECHNIQUE: Sagittal T1, T2 axial, T2 axial FLAIR, axial susceptibility weighted imaging, axial diffus ion weighted images, and coronal T2 images were obtained. Pre and post-T1 axial and post T1 coronal i mages. ADC and FSPGR images. CLINICAL INFORMATION: TIA/ CVA COMPARISON: CT 11/19/2021 FINDINGS: No evidence of restricted diffusion to suggest acute ischemia. Ventricular system and basilar cistern s are patent. Moderate to advanced small vessel changes with moderate parenchymal volume loss. Normal posterior fossa. Normal vascular flow voids at the skull base. No extra-axial fluid collections. No evidence of mass or mass effect. Stable fusiform dilatation of the RIGHT supraclinoid ICA and RIGHT p roximal M1 segment Mild mucosal thickening in the paranasal sinuses. Mucosal thickening in the RIGHT greater than LEFT m astoid tips. No hemosiderin on the susceptibly weighted images. Normal optic chiasm and pituitary inf undibulum. Moderate atrophy of the RIGHT greater than LEFT mesial temporal lobe and hippocampal forma tions. No abnormal intracranial gadolinium enhancement. Normal dural venous sinuses. Small enhancing nodule in the RIGHT distal IAC measuring approximately 4 mm most compatible with vestibular schwannoma. Bhavin mmend ENT consultation. This could be better evaluated with MRI of the head without and with gadolini um enhancement with IAC protocol. LEFT IAC appears normal. MR/MR head wo/w con [id number] IMPRESSION: 1. No evidence of restricted diffusion to suggest acute ischemia. 2. 4 mm enhancing lesion in the RIGHT distal IAC just proximal to the cochlear promontory most compatible with vestibular schwannoma. Recommend correlation f or RIGHT sensorineural hearing loss and ENT consultation. This could be followe d up with MRI of the head without and with gadolinium enhanced with dedicated I AC protocol for better anatomic detail 3. Moderate to advanced small vessel changes with moderate parenchymal volume loss slightly progressed since 2021. 4. Stable fusiform dilatation of the RIGHT supraclinoid ICA unchanged from the prior studies. 5. No hemosiderin on the susceptibility-weighted images. 6. No other acute findings.
[2024-05-24] MEDS: gadobenate dimeglumine 20 mL vial IV (15:06)
== END 2024-05-24 13:52 | disposition home or self-care (01) ==
LOC: RAD 13:52
PROVIDERS: PCP Family Medicine; Visit Provider Family Medicine
DX: G45.9 Transient cerebral ischemic attack, unspecified (principal); H83.8X1 Other specified diseases of right inner ear; G31.89 Other specified degenerative diseases of nervous system
CPT/HCPCS: 70553

== ENCOUNTER → 2024-09-07 14:55 | Outpatient (BNVA) | payer MEDICARE, SELFPAY | PROVIDERS: PCP Family Medicine; Visit Provider Podiatrist Foot & Ankle Surgery | DX: M79.662 Pain in left lower leg (principal); M76.61 Achilles tendinitis, right leg; M76.62 Achilles tendinitis, left leg | CPT/HCPCS: 73590; 99213 ==

== ENCOUNTER → 2024-09-29 07:40 | Outpatient (BNVA) | payer MEDICARE, SELFPAY | PROVIDERS: PCP Family Medicine; Visit Provider Podiatrist Foot & Ankle Surgery | DX: M76.62 Achilles tendinitis, left leg (principal) | CPT/HCPCS: 99213 ==

== ENCOUNTER 2024-10-05 13:32 | Outpatient (CLI) | payer MEDICARE, SELFPAY ==
--- NOTE | 2024-10-05 14:30 | MR_ITS ---
WS: [id number] MRI LEFT LOWER EXTREMITY, NONCONTRAST COMPARISON: Radiograph 09/07/2024 Multiplanar, multisequence imaging is performed without contrast. The entire knee is not included but a moderate-sized Castro's cyst is identified. There is also small amount of fluid extending adjacent to the medial knee. Edema within the visualized popliteus muscle. There is edema extending inferiorly around the medial head of the gastrocnemius. There is also fluid extending along the medial head of the gastrocnemius. There is subcutaneous edema noted. A portion of the RIGHT lower extremity was also included in the image and edema was noted bilaterally although the more focal fluid along the medial head of the gastrocnemius is only on the LEFT. There is mild feathery along the medial head of the gastrocnemius. No fractures or marrow edema. MR/MR lower leg LT wo con* [id number] IMPRESSION: 1. No fracture RIGHT lower extremity. 2. Edema within the popliteus muscle. Consider myositis of the popliteus muscl e versus injury. 3. Castro's cyst with fluid extending along the medial head of the gastrocnemiu s. There may be a partial rupture of the Castro's cyst resulting in the fluid.
== END 2024-10-05 13:33 | disposition home or self-care (01) ==
PROVIDERS: PCP Family Medicine; Visit Provider Podiatrist Foot & Ankle Surgery
DX: M79.662 Pain in left lower leg (principal); R93.6 Abnormal findings on diagnostic imaging of limbs; M71.22 Synovial cyst of popliteal space [Baker], left knee
CPT/HCPCS: 73718

== ENCOUNTER → 2024-10-10 13:49 | Outpatient (BNVA) | payer MEDICARE, SELFPAY | PROVIDERS: PCP Family Medicine; Visit Provider Family Medicine | DX: M60.9 Myositis, unspecified (principal) | CPT/HCPCS: 80053; 82550; 85025; 85651; 86140 ==

== ENCOUNTER → 2024-10-19 13:58 | Outpatient (BNVA) | payer MEDICARE, SELFPAY | PROVIDERS: PCP Family Medicine; Visit Provider Internal Medicine Cardiovascular Disease | DX: I25.10 Atherosclerotic heart disease of native coronary artery without angina pectoris (principal); I10 Essential (primary) hypertension; E78.2 Mixed hyperlipidemia; Z86.73 Personal history of transient ischemic attack (TIA), and cerebral infarction without residual deficits | CPT/HCPCS: 99214 ==

== ENCOUNTER → 2024-11-28 14:34 | Outpatient (BNVA) | payer MEDICARE, SELFPAY | PROVIDERS: PCP Family Medicine; Visit Provider Family Medicine | DX: I10 Essential (primary) hypertension (principal); M19.90 Unspecified osteoarthritis, unspecified site | CPT/HCPCS: 84550; 85025; 86140 ==

== ENCOUNTER 2024-12-14 09:39 | Outpatient (CLI) | payer MEDICARE, SELFPAY ==
--- NOTE | 2024-12-14 10:00 | USCV_ITS ---
Jones Rodríguez Age: 74 Gender: M : 1950 Exam Date: 12/14/2024 10:27 Ordering Phys: Waqar Johns MD Technologist: Exam Location: [facility] Indication: rt leg pain and swelling PROCEDURES: Venous duplex imaging was performed in only the RIGHT lower extremity. The following venous structures were evaluated: common femoral vein, profunda vein, proximal portion of the greater saphenous vein, superficial femoral vein, and the popliteal vein. In addition, the posterior tibial and peroneal trunk were evaluated. FINDINGS: Normal 2-D Doppler and augmentation and compressibility throughout the lower extremity venous structures. Additional imaging through the proximal calf veins also reveals no thrombus. Limited evaluation of the greater saphenous vein is patent with no thrombus. CONCLUSIONS No evidence of RIGHT lower extremity DVT. Michael Ramirez MD (Electronically Signed) Final Date: 14 Dec 2024 13:23 S
== END 2024-12-14 09:40 | disposition home or self-care (01) ==
LOC: RAD 09:39
PROVIDERS: PCP Family Medicine; Visit Provider Family Medicine
DX: M79.604 Pain in right leg (principal)
CPT/HCPCS: 93971

== ENCOUNTER → 2024-12-30 14:30 | Outpatient (BNVA) | payer MEDICARE, SELFPAY | PROVIDERS: PCP Family Medicine; Visit Provider Podiatrist Foot & Ankle Surgery | DX: R60.0 Localized edema (principal); S86.011A Strain of right Achilles tendon, initial encounter; M25.571 Pain in right ankle and joints of right foot; X58.XXXA Exposure to other specified factors, initial encounter | CPT/HCPCS: 73610; 99214 ==

== ENCOUNTER 2025-01-03 13:18 | Outpatient (CLI) | payer MEDICARE, SELFPAY ==
--- NOTE | 2025-01-03 16:45 | MR_ITS ---
WS: [id number] EXAMINATION: MR ankle RT wo con* [id number] ORDER DATE: 01/03/2025 2:00 PM COMPARISON: None. HISTORY: Clinical tear of Achilles tear on right CONTRAST: None. TECHNIQUE: Axial proton density fat sat, axial T1, sagittal proton density, sagittal STIR, coronal T2 fat sat, and coronal T1 sequences performed. After contrast, axial T1 fat sat, coronal T1 fat sat, and sagittal T1 fat sat were performed. FINDINGS: High-grade complete/near-complete tear of the Achilles tendon with retraction of the proximal stump. Mucoid degeneration with tendinopathy in the residual visualized Achilles proximally. Associated hematoma and susceptibility artifact, which is likely due to calcification. Fluid-filled tendon cleft with tendon retraction approximately 5.6 cm from the insertion. Plantar and Achilles calcaneal spurring. Small amount of edema along the dorsal calcaneus. Split tear of the peroneal brevis with tenosynovitis. Tenosynovitis involving the flexor compartment tendons. Extensor compartment tendons appear intact. Advanced arthritis of the ankle mortise. MR/MR ankle RT wo con* [id number] IMPRESSION: High-grade complete tear of the Achilles with retraction of the proximal stump 5.6 cm from the insertion. Fluid-filled tendon cleft.
== END 2025-01-03 13:19 | disposition home or self-care (01) ==
PROVIDERS: PCP Family Medicine; Visit Provider Podiatrist Foot & Ankle Surgery
DX: R60.0 Localized edema (principal); S86.011A Strain of right Achilles tendon, initial encounter; M25.571 Pain in right ankle and joints of right foot; X58.XXXA Exposure to other specified factors, initial encounter
CPT/HCPCS: 73721

== ENCOUNTER → 2025-01-05 11:13 | Outpatient (BNVA) | payer MEDICARE, SELFPAY | PROVIDERS: PCP Family Medicine; Visit Provider Podiatrist Foot & Ankle Surgery | DX: S86.011A Strain of right Achilles tendon, initial encounter (principal); X58.XXXA Exposure to other specified factors, initial encounter | CPT/HCPCS: 99214 ==

== ENCOUNTER → 2025-04-17 15:39 | Outpatient (BNVA) | payer MEDICARE, SELFPAY | PROVIDERS: PCP Family Medicine; Visit Provider Family Medicine | DX: I10 Essential (primary) hypertension (principal) | CPT/HCPCS: 80048 ==

== ENCOUNTER → 2025-06-27 15:39 | Outpatient (BNVA) | payer MEDICARE, SELFPAY | PROVIDERS: PCP Family Medicine; Visit Provider Family Medicine | DX: I10 Essential (primary) hypertension (principal); K92.2 Gastrointestinal hemorrhage, unspecified | CPT/HCPCS: 80053; 83690; 85025; 86140 ==

== ENCOUNTER → 2025-07-04 08:02 | Outpatient (BNVA) | payer MEDICARE, SELFPAY | PROVIDERS: PCP Family Medicine; Visit Provider Surgery | DX: R63.4 Abnormal weight loss (principal) | CPT/HCPCS: 99204 ==

== ENCOUNTER 2025-07-26 07:48 | Day surgery (SDC) | payer MEDICARE, SELFPAY ==
--- NOTE | 2025-07-26 08:02 | W.PM.OPSUD ---
Surgery/Procedure H&P Update DATE OF PROCEDURE: July 26, 2025 DATE H&P PERFORMED: 07/04/25 H&P UPDATE INFORMATION: I have reviewed H&P completed within last 30 days, I have examined patient prior to procedure, No changes to prior documentation, H&P is in [facility] EMR on date indicated and Risks and benefits of the procedure reviewed PLANNED PROCEDURE: Operation Date: 07/26/25 09:45 Proposed Procedures p EGD with Balloon Dilation [id number] G0105 Z12.11 R63.4 R10.13(Not Applicable) - Holden Pereira MD s Colonoscopy(Not Applicable) - Holden Pereira MD
[2025-07-26 08:05] VITALS: BP 122/77; PULSE 71; RESP 16; TEMP 36.3; O2SAT 98; BMI 27.6
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
[2025-07-26 10:00] VITALS: BP 129/81; PULSE 68; RESP 18; TEMP 36.5; O2SAT 96
[2025-07-26 10:22] VITALS: BP 132/84; PULSE 60; RESP 17; O2SAT 99
[2025-07-26 11:01] VITALS: BP 133/79; PULSE 65; RESP 18; O2SAT 97
--- NOTE | 2025-07-26 11:10 | ANE.PACU2 ---
Inpatient post-anesthesia follow up: Airway intact: Yes Vital signs: Temperature 97.7 F Pulse Rate 65 Respiratory Rate 18 Blood Pressure 133/79 Pulse Oximetry 97 Oxygen Delivery Me thod Room Air Oxygen Flow Rate Fraction of Inspir ed Oxygen Hydration adequate: Yes Nausea and vomiting: No Pain level: 1 Mental status: Baseline
== END 2025-07-26 11:07 | disposition home or self-care (01) ==
PROVIDERS: PCP Family Medicine; Visit Provider Surgery
PROC: 0DJD8ZZ Inspection of Lower Intestinal Tract, Via Natural or Artificial Opening Endoscopic (ICD-10-PCS; CPT 45378; 2025-07-26 09:45)
DX: Z12.11 Encounter for screening for malignant neoplasm of colon (principal); R63.4 Abnormal weight loss; Z68.27 Body mass index [BMI] 27.0-27.9, adult; K64.8 Other hemorrhoids; D12.5 Benign neoplasm of sigmoid colon; D12.8 Benign neoplasm of rectum; R13.10 Dysphagia, unspecified; K21.9 Gastro-esophageal reflux disease without esophagitis; K29.70 Gastritis, unspecified, without bleeding; K31.7 Polyp of stomach and duodenum; Z79.82 Long term (current) use of aspirin; G47.33 Obstructive sleep apnea (adult) (pediatric); Z99.89 Dependence on other enabling machines and devices; R00.1 Bradycardia, unspecified; I95.9 Hypotension, unspecified; Z86.73 Personal history of transient ischemic attack (TIA), and cerebral infarction without residual deficits; I10 Essential (primary) hypertension; E78.5 Hyperlipidemia, unspecified; Z80.9 Family history of malignant neoplasm, unspecified; Z87.891 Personal history of nicotine dependence; I25.10 Atherosclerotic heart disease of native coronary artery without angina pectoris
CPT/HCPCS: 43239; 45380; 88305; J2704; J3010; J7030